=== PATIENT | male | born 1965 ===

== ENCOUNTER 2018-01-04 17:10 | Inpatient (IN) | payer MEDICAID ==
[~2018-01-04] VITALS: Ht 177.8 cm; Wt 76.9 kg
[2018-01-04] MEDS ORDERED: SODIUM CHLORIDE FLUSH 10ML SYR IVF ONE (17:30)
[2018-01-04] MEDS ORDERED: VANCOMYCIN PER PHARMACY IV ONE (17:30)
[2018-01-04] MEDS ORDERED: PIPERACILLIN/TAZO/PMX 3.375GM 50 ML IVPB ONE (17:30)
[2018-01-04] MEDS ORDERED: SODIUM CHLORIDE 0.9% 1,000ML IVBOLUS ONE (17:30)
[2018-01-04] MEDS ORDERED: PIPERACILLIN/TAZO/PMX 3.375GM 50 ML ONE (17:49)
[2018-01-04 18:05] LABS: ALBUMIN 2.8 g/dL (3.4-5.0); ANION GAP 10 mmol/L (5-15); CALCIUM 9.8 mg/dL (8.5-10.1); CHLORIDE 109 mmol/L (98-107)
[2018-01-04 18:10] LABS: ALANINE AMINOTRANSFERASE 17 U/L (12-78); ALKALINE PHOSPHATASE 91 U/L (45-117); BILIRUBIN,TOTAL 0.5 mg/dL (0.2-1.0); CREATININE 0.59 mg/dL (0.7-1.3); TOTAL PROTEIN 7.8 g/dL (6.4-8.2)
[2018-01-04 18:11] LABS: BASOPHILS % (AUTO) 0 % (0-1); EOSINOPHILS # (AUTO) 0.11 x10^3/uL (0-0.4); EOSINOPHILS % (AUTO) 1 % (1-7); HCT (SEDRATE) 37.2 % (39.2-51.8); LYMPHOCYTES # (AUTO) 2.02 x10^3/uL (1-3.4); LYMPHOCYTES % (AUTO) 14 % (22-44); MD NO; MEAN CORPUSCULAR HEMOGLOBIN 28.4 pg (27.5-34.5); MEAN CORPUSCULAR HGB CONC 32.2 g/dL (33.2-36.2); MEAN CORPUSCULAR VOLUME 88.1 fL (81-97); MONOCYTES # (AUTO) 0.58 x10^3/uL (0.2-0.8); MONOCYTES % (AUTO) 4 % (2-9); NEUTROPHILS # (AUTO) 11.85 x10^3/uL (1.8-6.8); NEUTROPHILS % (AUTO) 81 % (42-75); PLATELET COUNT 514 x10^3/uL (130-400); RED BLOOD COUNT 4.22 x10^6/uL (4.38-5.82); RED CELL DISTRIBUTION WIDTH 16.5 % (9.4-14.8)
[2018-01-04 18:23] LABS: SEDIMENTATION RATE 67 mm/hr (0-10)
[2018-01-04] MEDS ORDERED: VANCOMYCIN 1,400 MG in SODIUM CHLORIDE 0.9% 250 ML IV ONE (18:30)
[2018-01-04] MEDS ORDERED: ENOXAPARIN 40 MG/0.4 ML ONE (18:47)
[2018-01-04] MEDS: ENOXAPARIN 40 MG/0.4 ML SQ SCH (18:48)
[2018-01-04] MEDS ORDERED: ONDANSETRON ODT 4 MG PO PRN (19:00)
[2018-01-04] MEDS ORDERED: ACETAMINOPHEN 325 MG TABLET PO PRN (19:00)
[2018-01-04] MEDS ORDERED: ENALAPRILAT 1.25 MG/ML, 2ML IVPush PRN (19:00)
[2018-01-04] MEDS ORDERED: DOCUSATE 100 MG CAPSULE PO PRN (19:00)
[2018-01-04] MEDS ORDERED: DIPHENHYDRAMINE 25 MG CAPSULE PO PRN (19:00)
[2018-01-04] MEDS ORDERED: VANCOMYCIN PER PHARMACY MC PRN (19:00)
[2018-01-04 19:38] LABS: FREE T4 (FREE THYROXINE) 2.79 ng/dL (0.76-1.46); HEMOGLOBIN A1C 6.4 % (4.2-6.3); THYROID STIMULATING HORMONE < 0.005 mIU/L (0.358-3.740)
[2018-01-04] MEDS ORDERED: PHARMACOKINETIC CONSULTATION MC ONE (20:00)
[2018-01-04] MEDS ORDERED: PHARMACOKINETIC MONITORING MC PRN (20:00)
[2018-01-04] MEDS: PIPERACILLIN/TAZO/PMX 3.375GM 50 ML IV SCH (23:49)
[2018-01-05 01:36] VITALS: BP 122/82
[2018-01-05 02:44] VITALS: BP 119/73
[2018-01-05 05:01] LABS: BASOPHILS # (AUTO) 0.17 x10^3/uL (0-0.1); BASOPHILS % (AUTO) 1 % (0-1); EOSINOPHILS # (AUTO) 0.42 x10^3/uL (0-0.4); EOSINOPHILS % (AUTO) 3 % (1-7); LYMPHOCYTES # (AUTO) 3.95 x10^3/uL (1-3.4); LYMPHOCYTES % (AUTO) 31 % (22-44); MD NO; MEAN CORPUSCULAR HEMOGLOBIN 28.3 pg (27.5-34.5); MEAN CORPUSCULAR HGB CONC 32.5 g/dL (33.2-36.2); MEAN PLATELET VOLUME 7.7 fL (7.4-10.4); MONOCYTES # (AUTO) 1.34 x10^3/uL (0.2-0.8); MONOCYTES % (AUTO) 11 % (2-9); NEUTROPHILS # (AUTO) 6.83 x10^3/uL (1.8-6.8); NEUTROPHILS % (AUTO) 54 % (42-75); PLATELET COUNT 474 x10^3/uL (130-400); RED BLOOD COUNT 3.83 x10^6/uL (4.38-5.82); RED CELL DISTRIBUTION WIDTH 16.2 % (9.4-14.8)
[2018-01-05 05:13] LABS: ANION GAP 9 mmol/L (5-15); CALCIUM 8.6 mg/dL (8.5-10.1); CHLORIDE 112 mmol/L (98-107)
[2018-01-05 05:14] LABS: CREATININE 0.52 mg/dL (0.7-1.3)
[2018-01-05] MEDS: PIPERACILLIN/TAZO/PMX 3.375GM 50 ML IV SCH ×4 (05:43→23:48)
[2018-01-05 06:33] VITALS: BP 123/63
[2018-01-05] MEDS: VANCOMYCIN 1,400 MG in SODIUM CHLORIDE 0.9% 250 ML IV SCH ×2 (06:37→18:42)
[2018-01-05] MEDS: ATENOLOL 25 MG TABLET PO SCH ×2 (07:50→18:43)
[2018-01-05 12:39] VITALS: BP 119/73
[2018-01-05] MEDS: ENOXAPARIN 40 MG/0.4 ML SQ SCH (19:00)
[2018-01-05 19:35] VITALS: BP 100/62
[2018-01-06 01:51] VITALS: BP 116/77
[2018-01-06] MEDS: PIPERACILLIN/TAZO/PMX 3.375GM 50 ML IV SCH ×3 (06:09→20:41)
[2018-01-06] MEDS: ATENOLOL 25 MG TABLET PO SCH ×2 (06:09→18:32)
[2018-01-06 06:35] VITALS: BP 126/80
[2018-01-06] MEDS: VANCOMYCIN 1,400 MG in SODIUM CHLORIDE 0.9% 250 ML IV SCH ×2 (06:51→18:33)
[2018-01-06 12:45] VITALS: BP 136/87
[2018-01-06 18:30] VITALS: BP 126/73
[2018-01-06] MEDS: ENOXAPARIN 40 MG/0.4 ML SQ SCH (19:00)
[2018-01-06 19:27] VITALS: BP 119/81
[2018-01-07] MEDS: PIPERACILLIN/TAZO/PMX 3.375GM 50 ML IV SCH ×4 (01:09→20:39)
[2018-01-07 02:35] VITALS: BP 135/77
[2018-01-07] MEDS: ATENOLOL 25 MG TABLET PO SCH ×2 (05:39→18:00)
[2018-01-07] MEDS: VANCOMYCIN 1,400 MG in SODIUM CHLORIDE 0.9% 250 ML IV SCH ×2 (05:39→18:00)
[2018-01-07 06:55] VITALS: BP 138/80
[2018-01-07 07:00] VITALS: BP 135/87
[2018-01-07 13:50] VITALS: BP 133/80
[2018-01-07 17:29] VITALS: BP 109/76
[2018-01-07] MEDS ORDERED: DIPHENHYDRAMINE 12.5MG/5ML, 10ML UDC PO ONE (18:00)
[2018-01-07] MEDS: ENOXAPARIN 40 MG/0.4 ML SQ SCH (18:01)
[2018-01-07 19:26] VITALS: BP 107/70
[2018-01-08 00:28] VITALS: BP 100/63
[2018-01-08] MEDS: PIPERACILLIN/TAZO/PMX 3.375GM 50 ML IV SCH ×4 (01:27→19:34)
[2018-01-08] MEDS: ATENOLOL 25 MG TABLET PO SCH ×2 (06:11→17:54)
[2018-01-08] MEDS: VANCOMYCIN 1,400 MG in SODIUM CHLORIDE 0.9% 250 ML IV SCH ×2 (06:12→17:37)
[2018-01-08 06:19] LABS: CREATININE 0.91 mg/dL (0.7-1.3)
[2018-01-08 06:50] VITALS: BP 111/79
[2018-01-08 14:10] VITALS: BP 113/78
[2018-01-08] MEDS: ENOXAPARIN 40 MG/0.4 ML SQ SCH (17:54)
[2018-01-08 19:19] VITALS: BP 128/78
[2018-01-09 01:21] VITALS: BP 119/77
[2018-01-09] MEDS: PIPERACILLIN/TAZO/PMX 3.375GM 50 ML IV SCH ×3 (01:36→13:26)
[2018-01-09 05:13] LABS: BASOPHILS % (AUTO) 1 % (0-1); EOSINOPHILS # (AUTO) 0.81 x10^3/uL (0-0.4); EOSINOPHILS % (AUTO) 8 % (1-7); LYMPHOCYTES # (AUTO) 3.46 x10^3/uL (1-3.4); LYMPHOCYTES % (AUTO) 34 % (22-44); MD NO; MEAN CORPUSCULAR HEMOGLOBIN 28.5 pg (27.5-34.5); MEAN CORPUSCULAR HGB CONC 32.5 g/dL (33.2-36.2); MEAN CORPUSCULAR VOLUME 87.8 fL (81-97); MONOCYTES # (AUTO) 1.22 x10^3/uL (0.2-0.8); MONOCYTES % (AUTO) 12 % (2-9); NEUTROPHILS # (AUTO) 4.56 x10^3/uL (1.8-6.8); NEUTROPHILS % (AUTO) 45 % (42-75); PLATELET COUNT 655 x10^3/uL (130-400); RED BLOOD COUNT 4.37 x10^6/uL (4.38-5.82); RED CELL DISTRIBUTION WIDTH 16.5 % (9.4-14.8)
[2018-01-09 05:24] LABS: CHLORIDE 110 mmol/L (98-107)
[2018-01-09 05:29] LABS: ALBUMIN 2.7 g/dL (3.4-5.0); ANION GAP 7 mmol/L (5-15); CALCIUM 10.3 mg/dL (8.5-10.1)
[2018-01-09] MEDS: VANCOMYCIN 1,400 MG in SODIUM CHLORIDE 0.9% 250 ML IV SCH (05:37)
[2018-01-09] MEDS: ATENOLOL 25 MG TABLET PO SCH ×3 (05:37→17:45)
[2018-01-09 08:24] VITALS: BP 113/72
[2018-01-09] MEDS: PIPERACILLIN/TAZO/PMX 4.5GM 100 ML IV SCH ×2 (14:30→23:31)
[2018-01-09 16:04] VITALS: BP 133/85
[2018-01-09 19:26] VITALS: BP 129/87
[2018-01-09] MEDS: ENOXAPARIN 40 MG/0.4 ML SQ SCH (19:35)
[2018-01-10 01:39] VITALS: BP 119/70
[2018-01-10 05:48] LABS: BASOPHILS # (AUTO) 0.14 x10^3/uL (0-0.1); BASOPHILS % (AUTO) 1 % (0-1); EOSINOPHILS # (AUTO) 0.58 x10^3/uL (0-0.4); EOSINOPHILS % (AUTO) 5 % (1-7); LYMPHOCYTES # (AUTO) 3.01 x10^3/uL (1-3.4); LYMPHOCYTES % (AUTO) 28 % (22-44); MD NO; MEAN CORPUSCULAR HGB CONC 33.1 g/dL (33.2-36.2); MEAN CORPUSCULAR VOLUME 87.7 fL (81-97); MEAN PLATELET VOLUME 8.1 fL (7.4-10.4); MONOCYTES # (AUTO) 1.29 x10^3/uL (0.2-0.8); MONOCYTES % (AUTO) 12 % (2-9); NEUTROPHILS # (AUTO) 5.86 x10^3/uL (1.8-6.8); NEUTROPHILS % (AUTO) 54 % (42-75); PLATELET COUNT 646 x10^3/uL (130-400); RED BLOOD COUNT 4.51 x10^6/uL (4.38-5.82); RED CELL DISTRIBUTION WIDTH 16.6 % (9.4-14.8)
[2018-01-10 05:56] LABS: ANION GAP 9 mmol/L (5-15); CALCIUM 9.8 mg/dL (8.5-10.1); CHLORIDE 110 mmol/L (98-107)
[2018-01-10 05:58] LABS: CREATININE 0.84 mg/dL (0.7-1.3)
[2018-01-10] MEDS: ATENOLOL 25 MG TABLET PO SCH ×2 (06:27→18:03)
[2018-01-10] MEDS: PIPERACILLIN/TAZO/PMX 4.5GM 100 ML IV SCH ×2 (06:27→18:03)
[2018-01-10 07:23] VITALS: BP 118/78
[2018-01-10 13:59] VITALS: BP 124/74
[2018-01-10] MEDS: ENOXAPARIN 40 MG/0.4 ML SQ SCH (18:03)
[2018-01-10 19:21] VITALS: BP 118/78
[2018-01-11 02:12] VITALS: BP 131/81
[2018-01-11] MEDS: PIPERACILLIN/TAZO/PMX 4.5GM 100 ML IV SCH ×3 (02:12→17:25)
[2018-01-11] MEDS: ATENOLOL 25 MG TABLET PO SCH ×2 (05:21→17:25)
[2018-01-11] MEDS ORDERED: LIDOCAINE/PF 1%, 30ML INFIL ONE (07:00)
[2018-01-11 08:31] VITALS: BP 110/73
[2018-01-11 14:35] VITALS: BP 117/75
[2018-01-11] MEDS: ENOXAPARIN 40 MG/0.4 ML SQ SCH (17:51)
[2018-01-11 19:04] VITALS: BP 112/72
[2018-01-12] MEDS: PIPERACILLIN/TAZO/PMX 4.5GM 100 ML IV SCH ×3 (01:34→18:17)
[2018-01-12] MEDS: ATENOLOL 25 MG TABLET PO SCH ×2 (04:17→18:17)
[2018-01-12 06:42] VITALS: BP 117/80
[2018-01-12] MEDS: LINEZOLID 600 MG TABLET PO SCH ×2 (12:00→20:20)
[2018-01-12 15:59] VITALS: BP 116/71
[2018-01-12] MEDS: ENOXAPARIN 40 MG/0.4 ML SQ SCH (19:00)
[2018-01-12 19:38] VITALS: BP 120/78
[2018-01-13] MEDS: PIPERACILLIN/TAZO/PMX 4.5GM 100 ML IV SCH ×3 (02:08→17:39)
[2018-01-13] MEDS: ATENOLOL 25 MG TABLET PO SCH ×2 (04:01→17:38)
[2018-01-13 05:30] LABS: BASOPHILS # (AUTO) 0.09 x10^3/uL (0-0.1); BASOPHILS % (AUTO) 1 % (0-1); EOSINOPHILS # (AUTO) 0.66 x10^3/uL (0-0.4); EOSINOPHILS % (AUTO) 6 % (1-7); LYMPHOCYTES # (AUTO) 3.12 x10^3/uL (1-3.4); LYMPHOCYTES % (AUTO) 29 % (22-44); MD NO; MEAN CORPUSCULAR HEMOGLOBIN 28.3 pg (27.5-34.5); MEAN CORPUSCULAR HGB CONC 31.9 g/dL (33.2-36.2); MEAN CORPUSCULAR VOLUME 88.7 fL (81-97); MEAN PLATELET VOLUME 7.8 fL (7.4-10.4); MONOCYTES # (AUTO) 1.16 x10^3/uL (0.2-0.8); MONOCYTES % (AUTO) 11 % (2-9); NEUTROPHILS # (AUTO) 5.63 x10^3/uL (1.8-6.8); NEUTROPHILS % (AUTO) 53 % (42-75); PLATELET COUNT 698 x10^3/uL (130-400); RED CELL DISTRIBUTION WIDTH 16.9 % (9.4-14.8)
[2018-01-13 05:44] LABS: ALBUMIN 2.8 g/dL (3.4-5.0); ANION GAP 8 mmol/L (5-15); CALCIUM 10.3 mg/dL (8.5-10.1); CHLORIDE 111 mmol/L (98-107); CREATININE 0.93 mg/dL (0.7-1.3)
[2018-01-13] MEDS ORDERED: BUPIVACAINE/PF 0.5% ONE (06:46)
[2018-01-13] MEDS ORDERED: BUPIVACAINE/PF-EPI 0.5% 1:200K ONE (06:46)
[2018-01-13 07:48] VITALS: BP 124/77
[2018-01-13 08:33] LABS: T4 (THYROXINE) 13.2 mcg/dL (4.5-12.1)
[2018-01-13 08:38] LABS: THYROID STIMULATING HORMONE < 0.005 mIU/L (0.358-3.740)
[2018-01-13] MEDS: LINEZOLID 600 MG TABLET PO SCH ×2 (10:16→21:40)
[2018-01-13 15:01] VITALS: BP 125/77
[2018-01-13] MEDS: ENOXAPARIN 40 MG/0.4 ML SQ SCH (19:00)
[2018-01-13 19:15] VITALS: BP 128/79
[2018-01-14] MEDS: PIPERACILLIN/TAZO/PMX 4.5GM 100 ML IV SCH ×3 (01:34→17:45)
[2018-01-14 01:38] VITALS: BP 122/79
[2018-01-14] MEDS: ATENOLOL 25 MG TABLET PO SCH ×2 (06:00→17:45)
[2018-01-14 06:59] VITALS: BP 122/84
[2018-01-14] MEDS: LINEZOLID 600 MG TABLET PO SCH ×2 (11:23→21:16)
[2018-01-14 13:15] VITALS: BP 132/87
[2018-01-14] MEDS: ENOXAPARIN 40 MG/0.4 ML SQ SCH (19:00)
[2018-01-14 20:26] VITALS: BP 113/72
[2018-01-15] MEDS: PIPERACILLIN/TAZO/PMX 4.5GM 100 ML IV SCH ×3 (02:17→17:56)
[2018-01-15 02:23] VITALS: BP 124/80
[2018-01-15 05:54] LABS: BASOPHILS # (AUTO) 0.07 x10^3/uL (0-0.1); BASOPHILS % (AUTO) 1 % (0-1); EOSINOPHILS # (AUTO) 0.68 x10^3/uL (0-0.4); EOSINOPHILS % (AUTO) 6 % (1-7); LYMPHOCYTES # (AUTO) 3.33 x10^3/uL (1-3.4); LYMPHOCYTES % (AUTO) 30 % (22-44); MD NO; MEAN CORPUSCULAR HEMOGLOBIN 28.2 pg (27.5-34.5); MEAN CORPUSCULAR HGB CONC 32.1 g/dL (33.2-36.2); MEAN CORPUSCULAR VOLUME 88.1 fL (81-97); MEAN PLATELET VOLUME 7.6 fL (7.4-10.4); MONOCYTES # (AUTO) 0.17 x10^3/uL (0.2-0.8); MONOCYTES % (AUTO) 2 % (2-9); NEUTROPHILS # (AUTO) 6.68 x10^3/uL (1.8-6.8); NEUTROPHILS % (AUTO) 61 % (42-75); PLATELET COUNT 802 x10^3/uL (130-400); RED BLOOD COUNT 4.69 x10^6/uL (4.38-5.82); RED CELL DISTRIBUTION WIDTH 17.2 % (9.4-14.8)
[2018-01-15 06:01] LABS: CHLORIDE 109 mmol/L (98-107)
[2018-01-15 06:12] LABS: ALBUMIN 3.1 g/dL (3.4-5.0); ANION GAP 9 mmol/L (5-15); CALCIUM 9.7 mg/dL (8.5-10.1); CREATININE 0.88 mg/dL (0.7-1.3)
[2018-01-15 06:55] VITALS: BP 124/82
[2018-01-15] MEDS: ATENOLOL 25 MG TABLET PO SCH ×2 (09:35→17:57)
[2018-01-15] MEDS: LINEZOLID 600 MG TABLET PO SCH ×2 (09:35→21:10)
[2018-01-15 13:21] VITALS: BP 114/74
[2018-01-15 18:35] VITALS: BP 111/70
[2018-01-15] MEDS: ENOXAPARIN 40 MG/0.4 ML SQ SCH ×3 (19:00→23:28)
[2018-01-16 02:00] VITALS: BP 115/87
[2018-01-16] MEDS: PIPERACILLIN/TAZO/PMX 4.5GM 100 ML IV SCH ×3 (02:45→18:30)
[2018-01-16 04:55] LABS: MEAN CORPUSCULAR HEMOGLOBIN 28.4 pg (27.5-34.5); MEAN CORPUSCULAR HGB CONC 32.4 g/dL (33.2-36.2); MEAN CORPUSCULAR VOLUME 87.4 fL (81-97); MEAN PLATELET VOLUME 7.7 fL (7.4-10.4); PLATELET COUNT 752 x10^3/uL (130-400); RED BLOOD COUNT 4.67 x10^6/uL (4.38-5.82)
[2018-01-16 05:01] LABS: ALBUMIN 2.8 g/dL (3.4-5.0); ANION GAP 9 mmol/L (5-15); CALCIUM 9.7 mg/dL (8.5-10.1); CHLORIDE 111 mmol/L (98-107); CREATININE 0.97 mg/dL (0.7-1.3)
[2018-01-16 05:28] LABS: BASOPHILS # (AUTO) 0.69 x10^3/uL (0-0.1); BASOPHILS % (AUTO) 7 % (0-1); EOSINOPHILS # (AUTO) 0.61 x10^3/uL (0-0.4); EOSINOPHILS % (AUTO) 6 % (1-7); LYMPHOCYTES # (AUTO) 3.51 x10^3/uL (1-3.4); LYMPHOCYTES % (AUTO) 36 % (22-44); MD SCAN; MONOCYTES # (AUTO) 0.83 x10^3/uL (0.2-0.8); MONOCYTES % (AUTO) 8 % (2-9); NEUTROPHILS # (AUTO) 4.26 x10^3/uL (1.8-6.8); NEUTROPHILS % (AUTO) 43 % (42-75)
[2018-01-16 07:39] VITALS: BP 126/84
[2018-01-16] MEDS: ATENOLOL 25 MG TABLET PO SCH ×2 (09:21→18:02)
[2018-01-16] MEDS: LINEZOLID 600 MG TABLET PO SCH ×2 (09:21→21:09)
[2018-01-16 15:00] VITALS: BP 104/66
[2018-01-16 19:15] VITALS: BP 114/73
[2018-01-17] MEDS: PIPERACILLIN/TAZO/PMX 4.5GM 100 ML IV SCH ×3 (02:04→18:00)
[2018-01-17 04:45] VITALS: BP 113/80
[2018-01-17 05:52] LABS: BASOPHILS # (AUTO) 0.15 x10^3/uL (0-0.1); BASOPHILS % (AUTO) 1 % (0-1); EOSINOPHILS # (AUTO) 0.65 x10^3/uL (0-0.4); EOSINOPHILS % (AUTO) 6 % (1-7); LYMPHOCYTES # (AUTO) 4.04 x10^3/uL (1-3.4); LYMPHOCYTES % (AUTO) 40 % (22-44); MD NO; MEAN CORPUSCULAR HEMOGLOBIN 28.7 pg (27.5-34.5); MEAN CORPUSCULAR HGB CONC 32.7 g/dL (33.2-36.2); MEAN CORPUSCULAR VOLUME 87.6 fL (81-97); MEAN PLATELET VOLUME 7.9 fL (7.4-10.4); MONOCYTES # (AUTO) 0.81 x10^3/uL (0.2-0.8); MONOCYTES % (AUTO) 8 % (2-9); NEUTROPHILS # (AUTO) 4.54 x10^3/uL (1.8-6.8); NEUTROPHILS % (AUTO) 45 % (42-75); PLATELET COUNT 738 x10^3/uL (130-400); RED BLOOD COUNT 4.68 x10^6/uL (4.38-5.82); RED CELL DISTRIBUTION WIDTH 16.9 % (9.4-14.8)
[2018-01-17 05:53] LABS: CHLORIDE 110 mmol/L (98-107)
[2018-01-17 06:07] LABS: ALANINE AMINOTRANSFERASE 16 U/L (12-78); ALKALINE PHOSPHATASE 76 U/L (45-117); ANION GAP 8 mmol/L (5-15); BILIRUBIN,TOTAL 0.7 mg/dL (0.2-1.0); CALCIUM 9.3 mg/dL (8.5-10.1); CREATININE 0.92 mg/dL (0.7-1.3); FREE T4 (FREE THYROXINE) 1.31 ng/dL (0.76-1.46); TOTAL PROTEIN 8.2 g/dL (6.4-8.2)
[2018-01-17 06:12] LABS: THYROID STIMULATING HORMONE < 0.005 mIU/L (0.358-3.740)
[2018-01-17 06:28] LABS: SEDIMENTATION RATE 44 mm/hr (0-10)
[2018-01-17 07:24] VITALS: BP 124/76
[2018-01-17] MEDS: LINEZOLID 600 MG TABLET PO SCH ×2 (08:42→20:15)
[2018-01-17] MEDS: ATENOLOL 25 MG TABLET PO SCH ×2 (08:42→18:00)
[2018-01-17 18:02] VITALS: BP 122/82
[2018-01-17] MEDS: ENOXAPARIN 40 MG/0.4 ML SQ SCH (18:31)
[2018-01-17 19:48] VITALS: BP 111/74
[2018-01-18] MEDS: PIPERACILLIN/TAZO/PMX 4.5GM 100 ML IV SCH ×3 (01:54→18:26)
[2018-01-18 01:56] VITALS: BP 118/75
[2018-01-18 05:29] LABS: BASOPHILS % (AUTO) 1 % (0-1); EOSINOPHILS # (AUTO) 0.65 x10^3/uL (0-0.4); EOSINOPHILS % (AUTO) 6 % (1-7); LYMPHOCYTES # (AUTO) 3.89 x10^3/uL (1-3.4); LYMPHOCYTES % (AUTO) 37 % (22-44); MD NO; MEAN CORPUSCULAR HEMOGLOBIN 28.5 pg (27.5-34.5); MEAN CORPUSCULAR HGB CONC 32.7 g/dL (33.2-36.2); MEAN CORPUSCULAR VOLUME 87.1 fL (81-97); MEAN PLATELET VOLUME 7.6 fL (7.4-10.4); MONOCYTES # (AUTO) 0.79 x10^3/uL (0.2-0.8); MONOCYTES % (AUTO) 8 % (2-9); NEUTROPHILS # (AUTO) 5.09 x10^3/uL (1.8-6.8); NEUTROPHILS % (AUTO) 48 % (42-75); PLATELET COUNT 779 x10^3/uL (130-400); RED BLOOD COUNT 4.74 x10^6/uL (4.38-5.82); RED CELL DISTRIBUTION WIDTH 16.9 % (9.4-14.8)
[2018-01-18 05:41] LABS: ANION GAP 10 mmol/L (5-15); CALCIUM 9.1 mg/dL (8.5-10.1); CHLORIDE 110 mmol/L (98-107); CREATININE 0.93 mg/dL (0.7-1.3)
[2018-01-18] MEDS: ATENOLOL 25 MG TABLET PO SCH ×2 (05:49→18:26)
[2018-01-18 08:20] VITALS: BP 126/83
[2018-01-18] MEDS: LINEZOLID 600 MG TABLET PO SCH ×2 (09:05→21:07)
[2018-01-18 14:58] VITALS: BP 125/81
[2018-01-18 18:25] VITALS: BP 139/79
[2018-01-18] MEDS: ENOXAPARIN 40 MG/0.4 ML SQ SCH (19:00)
[2018-01-19] MEDS: PIPERACILLIN/TAZO/PMX 4.5GM 100 ML IV SCH ×3 (02:05→17:43)
[2018-01-19 03:26] VITALS: BP 124/79
[2018-01-19] MEDS: ATENOLOL 25 MG TABLET PO SCH ×2 (06:04→17:43)
[2018-01-19 06:50] VITALS: BP 116/74
[2018-01-19] MEDS: LINEZOLID 600 MG TABLET PO SCH ×2 (10:03→20:00)
[2018-01-19 13:09] VITALS: BP 116/76
[2018-01-19] MEDS: ENOXAPARIN 40 MG/0.4 ML SQ SCH (19:00)
[2018-01-19 20:03] VITALS: BP 113/74
[2018-01-19 20:18] VITALS: BP 107/69
[2018-01-20] MEDS: PIPERACILLIN/TAZO/PMX 4.5GM 100 ML IV SCH ×3 (01:50→17:59)
[2018-01-20 03:59] VITALS: BP 102/68
[2018-01-20] MEDS: ATENOLOL 25 MG TABLET PO SCH ×2 (06:00→18:00)
[2018-01-20 07:05] VITALS: BP 115/75
[2018-01-20] MEDS: LINEZOLID 600 MG TABLET PO SCH ×2 (10:00→20:03)
[2018-01-20 16:45] VITALS: BP 128/81
[2018-01-20] MEDS: ENOXAPARIN 40 MG/0.4 ML SQ SCH (17:59)
[2018-01-20 20:42] VITALS: BP 133/81
[2018-01-21 01:40] VITALS: BP 121/76
[2018-01-21] MEDS: PIPERACILLIN/TAZO/PMX 4.5GM 100 ML IV SCH ×3 (02:05→18:33)
[2018-01-21] MEDS: ATENOLOL 25 MG TABLET PO SCH ×2 (05:28→17:52)
[2018-01-21 06:06] VITALS: BP 113/74
[2018-01-21] MEDS: LINEZOLID 600 MG TABLET PO SCH ×2 (08:58→21:23)
[2018-01-21] MEDS ORDERED: MIDAZOLAM 1 MG/ML, 2ML ONE (12:03)
[2018-01-21] MEDS ORDERED: FENTANYL PF 250 MCG/5ML ONE (12:03)
[2018-01-21] MEDS ORDERED: LIDOCAINE GEL 2%, 5ML ONE (12:06)
[2018-01-21] MEDS ORDERED: BUPIVACAINE/PF 0.5% ONE (12:09)
[2018-01-21] MEDS ORDERED: ONDANSETRON ODT 8 MG ONE (12:19)
[2018-01-21] MEDS ORDERED: OxyconTIN ER 20 MG TAB.ER ONE (12:19)
[2018-01-21] MEDS ORDERED: ACETAMINOPHEN 500 MG TABLET ONE (12:20)
[2018-01-21] MEDS ORDERED: GABAPENTIN 300 MG CAPSULE ONE (12:20)
[2018-01-21] MEDS ORDERED: OxyconTIN ER 20 MG TAB.ER PO ONE (12:30)
[2018-01-21] MEDS ORDERED: GABAPENTIN 400 MG CAPSULE PO ONE (12:30)
[2018-01-21] MEDS ORDERED: ONDANSETRON ODT 8 MG PO ONE (12:30)
[2018-01-21] MEDS ORDERED: ACETAMINOPHEN 500 MG TABLET PO ONE (12:30)
[2018-01-21] MEDS ORDERED: SUCCINYLCHOLINE 20 MG/ML, 10ML ONE (12:35)
[2018-01-21] MEDS ORDERED: ROCURONIUM 10 MG/ML,10ML ONE (12:35)
[2018-01-21] MEDS ORDERED: MIDAZOLAM 1 MG/ML, 2ML IV PRN (13:30)
[2018-01-21] MEDS ORDERED: MEPERIDINE/PF 25MG/0.5ML IVPush PRN (13:30)
[2018-01-21] MEDS ORDERED: ONDANSETRON ODT 8 MG PO PRN (13:30)
[2018-01-21] MEDS ORDERED: EPHEDRINE 50 MG/ML, 1ML IM PRN (13:30)
[2018-01-21] MEDS ORDERED: DIAZEPAM 5 MG/ML, 2ML IVPush PRN (13:30)
[2018-01-21] MEDS ORDERED: SCOPOLAMINE PATCH, 1.5MG PATCH.TD72 TD PRN (13:30)
[2018-01-21] MEDS ORDERED: MORPHINE SULFATE 4 MG/ML, 1ML IVPush PRN (13:30)
[2018-01-21] MEDS ORDERED: DIPHENHYDRAMINE 50 MG/ML, 1ML IVPush PRN (13:30)
[2018-01-21] MEDS ORDERED: ALBUTEROL/IPRATROPIUM 2.5MG/0.5MG, 3 ML NPPB PRN (13:30)
[2018-01-21] MEDS ORDERED: hydrALAzine 20 MG/ML, 1ML IV PRN (13:30)
[2018-01-21] MEDS ORDERED: PROMETHAZINE 25 MG/ML, 1ML IV PRN (13:30)
[2018-01-21] MEDS ORDERED: LABETALOL 5MG/ML, 20ML IV PRN (13:30)
[2018-01-21] MEDS ORDERED: OXYcodone 5 MG/5 ML ORAL.SOL UDC PO PRN (13:30)
[2018-01-21] MEDS ORDERED: ONDANSETRON 2MG/ML, 2ML ONE (14:28)
[2018-01-21] MEDS ORDERED: PROPOFOL 10 MG/ML, 20ML ONE (14:28)
[2018-01-21] MEDS ORDERED: CEFAZOLIN 1,000 MG ONE (14:28)
[2018-01-21] MEDS ORDERED: DEXAMETHASONE 4 MG/ML, 1ML ONE (14:28)
[2018-01-21] MEDS: FENTANYL PF 100 MCG/2ML IV PRN ×2 (15:12→16:33)
[2018-01-21] MEDS ORDERED: FENTANYL PF 100 MCG/2ML ONE (15:13)
[2018-01-21] MEDS ORDERED: MORPHINE SULFATE 4 MG/ML, 1ML ONE (15:13)
[2018-01-21] MEDS ORDERED: OXYcodone 5 MG/5 ML ORAL.SOL UDC ONE (16:29)
[2018-01-21] MEDS: ENOXAPARIN 40 MG/0.4 ML SQ SCH (17:53)
[2018-01-21 19:45] VITALS: BP 134/78
[2018-01-22] MEDS: PIPERACILLIN/TAZO/PMX 4.5GM 100 ML IV SCH ×3 (01:52→17:28)
[2018-01-22 04:52] VITALS: BP 105/70
[2018-01-22] MEDS: ATENOLOL 25 MG TABLET PO SCH ×2 (06:01→17:29)
[2018-01-22 07:28] VITALS: BP 104/66
[2018-01-22] MEDS: LINEZOLID 600 MG TABLET PO SCH ×2 (08:03→20:39)
[2018-01-22] MEDS ORDERED: CALCIUM GLUCONATE 4.6 MEQ in SODIUM CHLORIDE 0.9% 50 ML IV ONE (10:00)
[2018-01-22] MEDS: CALCIUM/VITAMIN D3 250-125 TABLET PO SCH ×3 (11:03→20:39)
[2018-01-22 14:10] VITALS: BP 110/75
[2018-01-22] MEDS: ENOXAPARIN 40 MG/0.4 ML SQ SCH (17:28)
[2018-01-22 17:29] VITALS: BP 125/82
[2018-01-22 19:34] VITALS: BP 130/86
[2018-01-23] MEDS: PIPERACILLIN/TAZO/PMX 4.5GM 100 ML IV SCH ×3 (02:21→16:51)
[2018-01-23 02:25] VITALS: BP 133/87
[2018-01-23 05:29] LABS: FREE T4 (FREE THYROXINE) 1.27 ng/dL (0.76-1.46)
[2018-01-23 05:33] LABS: THYROID STIMULATING HORMONE < 0.005 mIU/L (0.358-3.740)
[2018-01-23] MEDS: ATENOLOL 25 MG TABLET PO SCH ×2 (06:00→16:51)
[2018-01-23 07:55] VITALS: BP 124/79
[2018-01-23] MEDS: LINEZOLID 600 MG TABLET PO SCH ×2 (10:04→21:14)
[2018-01-23] MEDS: CALCIUM/VITAMIN D3 250-125 TABLET PO SCH ×3 (10:04→21:14)
[2018-01-23] MEDS ORDERED: CALCIUM GLUCONATE 9.2 MEQ in SODIUM CHLORIDE 0.9% 100 ML IV ONE (11:00)
[2018-01-23] MEDS ORDERED: ERGOCALCIFEROL 50,000 UNIT CAPSULE PO SCH (11:00)
[2018-01-23 13:29] VITALS: BP 122/81
[2018-01-23] MEDS: ENOXAPARIN 40 MG/0.4 ML SQ SCH (19:00)
[2018-01-23 21:36] VITALS: BP 138/83
[2018-01-24] MEDS: PIPERACILLIN/TAZO/PMX 4.5GM 100 ML IV SCH ×3 (02:15→17:03)
[2018-01-24 03:03] VITALS: BP 135/82
[2018-01-24 05:37] LABS: CHLORIDE 106 mmol/L (98-107)
[2018-01-24 05:55] LABS: ALANINE AMINOTRANSFERASE 13 U/L (12-78); ALBUMIN 2.8 g/dL (3.4-5.0); ALKALINE PHOSPHATASE 71 U/L (45-117); ANION GAP 9 mmol/L (5-15); BILIRUBIN,TOTAL 0.7 mg/dL (0.2-1.0); CALCIUM 7.8 mg/dL (8.5-10.1); CREATININE 0.84 mg/dL (0.7-1.3); TOTAL PROTEIN 7.3 g/dL (6.4-8.2)
[2018-01-24 06:14] LABS: MEAN CORPUSCULAR HEMOGLOBIN 28.6 pg (27.5-34.5); MEAN CORPUSCULAR HGB CONC 32.8 g/dL (33.2-36.2); MEAN CORPUSCULAR VOLUME 87.3 fL (81-97); MEAN PLATELET VOLUME 7.8 fL (7.4-10.4); PLATELET COUNT 531 x10^3/uL (130-400); RED BLOOD COUNT 4.54 x10^6/uL (4.38-5.82); RED CELL DISTRIBUTION WIDTH 17.2 % (9.4-14.8)
[2018-01-24] MEDS: ATENOLOL 25 MG TABLET PO SCH ×2 (06:23→17:03)
[2018-01-24 06:41] LABS: HCT (SEDRATE) 39.6 % (39.2-51.8)
[2018-01-24 06:51] LABS: MD YES
[2018-01-24 07:01] LABS: BASOS#(MANUAL) 0.13 x10^3/uL (0-0.1); BASOS% (MANUAL) 1 % (0-1); EOS#(MANUAL) 0.26 x10^3/uL (0.0-0.4); EOS% (MANUAL) 2 % (1-7)
[2018-01-24 07:02] LABS: LYMPH#(MANUAL) 5.16 x10^3/uL (1-3.4); LYMPHS% (MANUAL) 40 % (22-44); MONOS% (MANUAL) 7 % (2-9); SEG#(MANUAL) 6.45 x10^3/uL (1.8-6.8); SEGS% (MANUAL) 50 % (42-75)
[2018-01-24 07:03] LABS: ANISOCYTOSIS 1+
[2018-01-24 07:05] LABS: <PLATELET ESTIMATE> INCREASED; <PLT MORPHOLOGY> NORMAL PLT MORPH
[2018-01-24 07:18] VITALS: BP 115/72
[2018-01-24] MEDS: LINEZOLID 600 MG TABLET PO SCH ×2 (10:16→20:53)
[2018-01-24] MEDS: CALCIUM/VITAMIN D3 250-125 TABLET PO SCH ×3 (10:16→20:53)
[2018-01-24 12:29] VITALS: BP 124/74
[2018-01-24 17:00] VITALS: BP 138/82
[2018-01-24 19:23] VITALS: BP 121/70
[2018-01-24] MEDS: ENOXAPARIN 40 MG/0.4 ML SQ SCH (20:53)
[2018-01-25 02:22] VITALS: BP 118/68
[2018-01-25] MEDS: PIPERACILLIN/TAZO/PMX 4.5GM 100 ML IV SCH ×3 (02:39→17:18)
[2018-01-25] MEDS: ATENOLOL 25 MG TABLET PO SCH ×2 (05:30→17:17)
[2018-01-25 07:52] VITALS: BP 139/90
[2018-01-25] MEDS: CALCIUM/VITAMIN D3 250-125 TABLET PO SCH ×3 (10:00→21:00)
[2018-01-25] MEDS: LINEZOLID 600 MG TABLET PO SCH ×2 (10:00→21:00)
[2018-01-25 13:00] VITALS: BP 141/84
[2018-01-25] MEDS: ENOXAPARIN 40 MG/0.4 ML SQ SCH (17:40)
[2018-01-25 20:47] VITALS: BP 133/77
[2018-01-26] MEDS: PIPERACILLIN/TAZO/PMX 4.5GM 100 ML IV SCH ×2 (01:57→10:49)
[2018-01-26 01:58] VITALS: BP 150/92
[2018-01-26] MEDS: ATENOLOL 25 MG TABLET PO SCH ×2 (05:35→17:55)
[2018-01-26 08:11] VITALS: BP 133/84
[2018-01-26] MEDS: CALCIUM/VITAMIN D3 250-125 TABLET PO SCH ×3 (08:52→20:49)
[2018-01-26] MEDS: LINEZOLID 600 MG TABLET PO SCH (08:52)
[2018-01-26 12:29] VITALS: BP 153/56
[2018-01-26] MEDS: ENOXAPARIN 40 MG/0.4 ML SQ SCH (17:55)
[2018-01-26 17:57] VITALS: BP 143/86
[2018-01-26 20:01] VITALS: BP 128/62
[2018-01-27 03:20] VITALS: BP 151/86
[2018-01-27] MEDS: ATENOLOL 25 MG TABLET PO SCH ×2 (06:35→18:29)
[2018-01-27 07:09] VITALS: BP 143/85
[2018-01-27] MEDS: CALCIUM/VITAMIN D3 250-125 TABLET PO SCH ×3 (08:44→21:05)
[2018-01-27 15:17] VITALS: BP 156/89
[2018-01-27] MEDS: ENOXAPARIN 40 MG/0.4 ML SQ SCH (18:29)
[2018-01-27 18:48] VITALS: BP 144/83
[2018-01-28 02:37] VITALS: BP 142/87
[2018-01-28] MEDS: ATENOLOL 25 MG TABLET PO SCH (05:44)
[2018-01-28 07:45] VITALS: BP 153/94
[2018-01-28] MEDS: CALCIUM/VITAMIN D3 250-125 TABLET PO SCH (08:31)
[2018-01-28 12:01] LABS: ALANINE AMINOTRANSFERASE 29 U/L (12-78); ALBUMIN 3.2 g/dL (3.4-5.0); ANION GAP 8 mmol/L (5-15); CALCIUM 8.5 mg/dL (8.5-10.1); CHLORIDE 106 mmol/L (98-107); CREATININE 0.77 mg/dL (0.7-1.3)
[2018-01-28 12:04] LABS: ALKALINE PHOSPHATASE 84 U/L (45-117); BILIRUBIN,TOTAL 0.3 mg/dL (0.2-1.0); TOTAL PROTEIN 8.2 g/dL (6.4-8.2)
[2018-01-28 12:11] LABS: BASOPHILS # (AUTO) 0.31 x10^3/uL (0-0.1); BASOPHILS % (AUTO) 4 % (0-1); EOSINOPHILS # (AUTO) 0.92 x10^3/uL (0-0.4); EOSINOPHILS % (AUTO) 12 % (1-7); LYMPHOCYTES # (AUTO) 3.29 x10^3/uL (1-3.4); LYMPHOCYTES % (AUTO) 42 % (22-44); MD SCAN; MEAN CORPUSCULAR HEMOGLOBIN 28.9 pg (27.5-34.5); MEAN CORPUSCULAR HGB CONC 33.3 g/dL (33.2-36.2); MEAN PLATELET VOLUME 7.9 fL (7.4-10.4); MONOCYTES # (AUTO) 0.63 x10^3/uL (0.2-0.8); MONOCYTES % (AUTO) 8 % (2-9); NEUTROPHILS # (AUTO) 2.76 x10^3/uL (1.8-6.8); NEUTROPHILS % (AUTO) 35 % (42-75); PLATELET COUNT 423 x10^3/uL (130-400); RED BLOOD COUNT 4.91 x10^6/uL (4.38-5.82); RED CELL DISTRIBUTION WIDTH 16.8 % (9.4-14.8)
[2018-01-28 13:29] VITALS: BP 143/92
[2018-01-28] MEDS ORDERED: CALC1TAB68 PO (16:29)
[2018-01-28] MEDS ORDERED: ATEN25TA PO (16:29)
[2018-01-28] MEDS ORDERED: ERGO500017 PO (16:29)
== END 2018-01-28 18:15 | disposition home or self-care (01) | DRG 626 ==
LOC: ED 17:55 → OBSVTOIN 18:16 → INTOOBSV 18:16 → EDIP 18:16 → 3NE 19:43 → 4NOR 01-21 17:31
PROVIDERS: ADMIT Internal Medicine; ATTEND Internal Medicine
PROC: 0GBL0ZZ Excision of Right Superior Parathyroid Gland, Open Approach (ICD-10-PCS; principal; 2018-01-21 14:00)
PROC: 0JBP0ZX Excision of Left Lower Leg Subcutaneous Tissue and Fascia, Open Approach, Diagnostic (ICD-10-PCS; 2018-01-21 14:00)
DX: E05.00 Thyrotoxicosis with diffuse goiter without thyrotoxic crisis or storm (principal); I50.32 Chronic diastolic (congestive) heart failure; I27.20 Pulmonary hypertension, unspecified; L03.116 Cellulitis of left lower limb; E83.51 Hypocalcemia; L97.929 Non-pressure chronic ulcer of unspecified part of left lower leg with unspecified severity; L88 Pyoderma gangrenosum; R73.9 Hyperglycemia, unspecified; D63.8 Anemia in other chronic diseases classified elsewhere; F12.90 Cannabis use, unspecified, uncomplicated; F14.11 Cocaine abuse, in remission; F17.200 Nicotine dependence, unspecified, uncomplicated; Z80.0 Family history of malignant neoplasm of digestive organs; Z59.0 Homelessness; Z91.14 Patient's other noncompliance with medication regimen; D47.3 Essential (hemorrhagic) thrombocythemia
CPT/HCPCS: 36415; 80048; 80053; 80202; 82040; 82306; 82310; 82330; 82565; 82607; 83036; 83516; 83605; 83735; 83970; 84100; 84436; 84439; 84443; 84481; 85025; 85651; 86038; 86140; 86147; 86160; 86225; 86235; 86255; 86256; 86376; 86430; 86431; 87040; 87070; 87077; 87147; 87186; 87205; 88305; 88307; 88333; 93922; 96365; 96367; 96375; 99285; C1729; J0610; J0690; J1100; J1650; J2250; J2405; J2543; J2704; J3010; J3370; J3490; Q0162; C1760; G0378; J0330; J7030; J7050

== ENCOUNTER 2018-01-31 13:57 | Inpatient (IN) | payer MEDICAID ==
[~2018-01-31] VITALS: Ht 177.8 cm; Wt 84.0 kg
[~2018-01-31 13:57] MED LIST: ATEN25TA PO; CALC1TAB68 PO; ERGO500017 PO
[2018-01-31] MEDS ORDERED: ACETAMINOPHEN 500 MG TABLET ONE (14:14)
[2018-01-31] MEDS ORDERED: LINEZOLID PMX 600MG/300ML 300 ML IV ONE (14:30)
[2018-01-31] MEDS ORDERED: SODIUM CHLORIDE 0.9% 1,000ML IVBOLUS ONE ×2 (14:30→16:00)
[2018-01-31] MEDS ORDERED: PIPERACILLIN/TAZO/PMX 3.375GM 50 ML IV ONE (14:30)
[2018-01-31] MEDS ORDERED: SODIUM CHLORIDE FLUSH 10ML SYR IVF ONE (14:30)
[2018-01-31] MEDS ORDERED: ACETAMINOPHEN 500 MG TABLET PO ONE (14:30)
[2018-01-31] MEDS ORDERED: PIPERACILLIN/TAZO/PMX 3.375GM 50 ML ONE (14:43)
[2018-01-31 15:06] LABS: ALBUMIN 3.3 g/dL (3.4-5.0); ANION GAP 9 mmol/L (5-15); CALCIUM 7.8 mg/dL (8.5-10.1); CHLORIDE 112 mmol/L (98-107)
[2018-01-31 15:17] LABS: MD YES; MEAN CORPUSCULAR HEMOGLOBIN 28.4 pg (27.5-34.5); MEAN CORPUSCULAR HGB CONC 32.8 g/dL (33.2-36.2); MEAN CORPUSCULAR VOLUME 86.6 fL (81-97); MEAN PLATELET VOLUME 8.5 fL (7.4-10.4); PLATELET COUNT 383 x10^3/uL (130-400); RED BLOOD COUNT 4.29 x10^6/uL (4.38-5.82)
[2018-01-31 15:19] LABS: ALANINE AMINOTRANSFERASE 26 U/L (12-78); ALKALINE PHOSPHATASE 85 U/L (45-117); BILIRUBIN,TOTAL 0.9 mg/dL (0.2-1.0); CREATININE 0.84 mg/dL (0.7-1.3); FREE T4 (FREE THYROXINE) 0.62 ng/dL (0.76-1.46); THYROID STIMULATING HORMONE 0.013 mIU/L (0.358-3.740); TOTAL PROTEIN 7.6 g/dL (6.4-8.2)
[2018-01-31 15:38] LABS: BASOPHILS # (AUTO) 0.07 x10^3/uL (0-0.1); BASOPHILS % (AUTO) 0 % (0-1); EOSINOPHILS # (AUTO) 0.22 x10^3/uL (0-0.4); EOSINOPHILS % (AUTO) 1 % (1-7); LYMPHOCYTES # (AUTO) 3.21 x10^3/uL (1-3.4); LYMPHOCYTES % (AUTO) 12 % (22-44); MONOCYTES # (AUTO) 1.84 x10^3/uL (0.2-0.8); MONOCYTES % (AUTO) 7 % (2-9); NEUTROPHILS # (AUTO) 21.27 x10^3/uL (1.8-6.8); NEUTROPHILS % (AUTO) 80 % (42-75)
[2018-01-31 15:40] LABS: <PLATELET ESTIMATE> ADEQUATE; <PLT MORPHOLOGY> NORMAL PLT MORPH; <RBC MORPHOLOGY> NORMAL
[2018-01-31] MEDS ORDERED: LABETALOL 5MG/ML, 20ML IVPush PRN (16:00)
[2018-01-31] MEDS ORDERED: ACETAMINOPHEN 325 MG TABLET PO PRN (16:00)
[2018-01-31] MEDS ORDERED: hydrALAzine 20 MG/ML, 1ML IVPush PRN (16:00)
[2018-01-31] MEDS: LINEZOLID PMX 600MG/300ML 300 ML IV SCH (18:07)
[2018-01-31] MEDS: ENOXAPARIN 40 MG/0.4 ML SQ SCH (18:07)
[2018-01-31] MEDS: LACTATED RINGERS 1,000 ML IV SCH (18:07)
[2018-01-31 19:57] VITALS: BP 107/67
[2018-01-31] MEDS: PIPERACILLIN/TAZO/PMX 4.5GM 100 ML IV SCH (21:30)
[2018-02-01 00:47] VITALS: BP 110/67
[2018-02-01 00:57] LABS: MICROSCOPIC AUTO
[2018-02-01 00:58] LABS: CULTURE INDICATED? YES
[2018-02-01 01:19] LABS: AMPHETAMINE SCREEN, URINE Negative (Negative); BARBITURATE SCREEN, URINE Negative (Negative); BENZODIAZEPINE SCREEN, URINE Negative (Negative); CANNABINOID SCREEN, URINE Negative (Negative); COCAINE SCREEN, URINE Negative (Negative); METHADONE SCREEN, URINE Negative (Negative); OPIATE SCREEN, URINE Negative (Negative)
[2018-02-01] MEDS: LACTATED RINGERS 1,000 ML IV SCH ×3 (03:26→20:20)
[2018-02-01 05:07] LABS: MEAN CORPUSCULAR HEMOGLOBIN 28.7 pg (27.5-34.5); MEAN CORPUSCULAR VOLUME 86.8 fL (81-97); MEAN PLATELET VOLUME 8.6 fL (7.4-10.4); PLATELET COUNT 320 x10^3/uL (130-400); RED BLOOD COUNT 3.73 x10^6/uL (4.38-5.82); RED CELL DISTRIBUTION WIDTH 16.7 % (9.4-14.8)
[2018-02-01] MEDS: PIPERACILLIN/TAZO/PMX 4.5GM 100 ML IV SCH ×3 (05:10→20:46)
[2018-02-01 05:14] LABS: CALCIUM 7.1 mg/dL (8.5-10.1); CHLORIDE 112 mmol/L (98-107)
[2018-02-01 05:20] LABS: ALANINE AMINOTRANSFERASE 20 U/L (12-78); ALBUMIN 2.4 g/dL (3.4-5.0); ALKALINE PHOSPHATASE 67 U/L (45-117); ANION GAP 7 mmol/L (5-15); CREATININE 0.69 mg/dL (0.7-1.3); TOTAL PROTEIN 6.1 g/dL (6.4-8.2)
[2018-02-01] MEDS ORDERED: MAGNESIUM SULFATE PMX 4GM/100M 100 ML IV ONE (05:30)
[2018-02-01] MEDS: LINEZOLID PMX 600MG/300ML 300 ML IV SCH ×2 (05:56→18:28)
[2018-02-01 06:01] LABS: BASOPHILS # (AUTO) 0.09 x10^3/uL (0-0.1); BASOPHILS % (AUTO) 1 % (0-1); EOSINOPHILS # (AUTO) 0.75 x10^3/uL (0-0.4); EOSINOPHILS % (AUTO) 4 % (1-7); LYMPHOCYTES # (AUTO) 4.52 x10^3/uL (1-3.4); LYMPHOCYTES % (AUTO) 24 % (22-44); MD SCAN; MONOCYTES # (AUTO) 1.84 x10^3/uL (0.2-0.8); MONOCYTES % (AUTO) 10 % (2-9); NEUTROPHILS # (AUTO) 11.64 x10^3/uL (1.8-6.8); NEUTROPHILS % (AUTO) 62 % (42-75)
[2018-02-01 07:46] VITALS: BP 125/57
[2018-02-01 13:18] VITALS: BP 124/71
[2018-02-01] MEDS: ERGOCALCIFEROL 50,000 UNIT CAPSULE PO SCH (13:33)
[2018-02-01] MEDS: ENOXAPARIN 40 MG/0.4 ML SQ SCH (17:00)
[2018-02-01] MEDS: CALCIUM CARBONATE 500 MG TABLET PO SCH ×2 (18:28→20:44)
[2018-02-01] MEDS ORDERED: MENING VAC A,C,Y,W-135 DIP/PF 0.5 ML AGE<55 IM-VACC ONE (18:30)
[2018-02-01] MEDS ORDERED: PNEUMOC 13-VALENT VACC, 0.5 ML IM-VACC ONE (18:30)
[2018-02-01] MEDS ORDERED: HAEMOPH B POLY CONJ-TET TOX/PF 10 MCG/0.5 ML INJ IM-VACC ONE (18:30)
[2018-02-01 19:05] VITALS: BP 132/80
[2018-02-02 01:32] VITALS: BP 127/79
[2018-02-02] MEDS: LACTATED RINGERS 1,000 ML IV SCH ×3 (02:59→16:44)
[2018-02-02] MEDS: PIPERACILLIN/TAZO/PMX 4.5GM 100 ML IV SCH ×3 (04:49→20:33)
[2018-02-02] MEDS: LINEZOLID PMX 600MG/300ML 300 ML IV SCH ×2 (05:35→16:43)
[2018-02-02 06:11] LABS: BASOPHILS % (AUTO) 1 % (0-1); EOSINOPHILS # (AUTO) 1.28 x10^3/uL (0-0.4); EOSINOPHILS % (AUTO) 9 % (1-7); LYMPHOCYTES # (AUTO) 4.01 x10^3/uL (1-3.4); LYMPHOCYTES % (AUTO) 27 % (22-44); MD NO; MEAN CORPUSCULAR HEMOGLOBIN 28.5 pg (27.5-34.5); MEAN CORPUSCULAR HGB CONC 32.7 g/dL (33.2-36.2); MEAN CORPUSCULAR VOLUME 87.1 fL (81-97); MEAN PLATELET VOLUME 8.8 fL (7.4-10.4); MONOCYTES # (AUTO) 1.05 x10^3/uL (0.2-0.8); MONOCYTES % (AUTO) 7 % (2-9); NEUTROPHILS % (AUTO) 56 % (42-75); PLATELET COUNT 349 x10^3/uL (130-400); RED BLOOD COUNT 3.88 x10^6/uL (4.38-5.82); RED CELL DISTRIBUTION WIDTH 17.3 % (9.4-14.8)
[2018-02-02 06:12] LABS: HCT (SEDRATE) 33.8 % (39.2-51.8)
[2018-02-02 07:38] VITALS: BP 126/81
[2018-02-02] MEDS ORDERED: HAEMOPH B POLY CONJ-TET TOX/PF 10 MCG/0.5 ML INJ IM-VACC ONE (09:00)
[2018-02-02] MEDS: CALCIUM CARBONATE 500 MG TABLET PO SCH ×3 (10:10→20:32)
[2018-02-02 14:27] VITALS: BP 123/76
[2018-02-02] MEDS: ENOXAPARIN 40 MG/0.4 ML SQ SCH (16:44)
[2018-02-02 20:52] VITALS: BP 148/88
[2018-02-03 03:09] VITALS: BP 129/86
[2018-02-03] MEDS: LACTATED RINGERS 1,000 ML IV SCH ×3 (04:11→17:07)
[2018-02-03] MEDS: PIPERACILLIN/TAZO/PMX 4.5GM 100 ML IV SCH ×3 (04:44→20:27)
[2018-02-03] MEDS: LINEZOLID PMX 600MG/300ML 300 ML IV SCH (05:18)
[2018-02-03 05:46] LABS: BASOPHILS # (AUTO) 0.24 x10^3/uL (0-0.1); BASOPHILS % (AUTO) 2 % (0-1); EOSINOPHILS # (AUTO) 1.14 x10^3/uL (0-0.4); EOSINOPHILS % (AUTO) 10 % (1-7); LYMPHOCYTES # (AUTO) 3.86 x10^3/uL (1-3.4); LYMPHOCYTES % (AUTO) 34 % (22-44); MD NO; MEAN CORPUSCULAR HEMOGLOBIN 27.8 pg (27.5-34.5); MEAN CORPUSCULAR HGB CONC 32.3 g/dL (33.2-36.2); MEAN CORPUSCULAR VOLUME 85.9 fL (81-97); MEAN PLATELET VOLUME 8.6 fL (7.4-10.4); MONOCYTES # (AUTO) 0.93 x10^3/uL (0.2-0.8); MONOCYTES % (AUTO) 8 % (2-9); NEUTROPHILS # (AUTO) 5.06 x10^3/uL (1.8-6.8); NEUTROPHILS % (AUTO) 45 % (42-75); PLATELET COUNT 403 x10^3/uL (130-400); RED BLOOD COUNT 3.95 x10^6/uL (4.38-5.82); RED CELL DISTRIBUTION WIDTH 17.5 % (9.4-14.8)
[2018-02-03 05:48] LABS: HCT (SEDRATE) 33.8 % (39.2-51.8)
[2018-02-03 07:50] VITALS: BP 133/87
[2018-02-03] MEDS: CALCIUM CARBONATE 500 MG TABLET PO SCH ×3 (09:36→20:34)
[2018-02-03 12:17] VITALS: BP 166/89
[2018-02-03] MEDS: ENOXAPARIN 40 MG/0.4 ML SQ SCH (17:06)
[2018-02-03 19:47] VITALS: BP 159/66
[2018-02-03] MEDS ORDERED: OMNIPAQUE 350 MG/ML, 100ML BOTTLE ONE (22:50)
[2018-02-04] MEDS: LACTATED RINGERS 1,000 ML IV SCH ×4 (00:02→22:27)
[2018-02-04 00:55] VITALS: BP 119/68
[2018-02-04] MEDS: PIPERACILLIN/TAZO/PMX 4.5GM 100 ML IV SCH ×3 (04:52→22:34)
[2018-02-04] MEDS ORDERED: FENTANYL PF 250 MCG/5ML ONE (06:16)
[2018-02-04] MEDS ORDERED: MIDAZOLAM 1 MG/ML, 2ML ONE (06:16)
[2018-02-04] MEDS ORDERED: PROPOFOL 10 MG/ML, 20ML ONE (06:20)
[2018-02-04] MEDS ORDERED: WATER-INJECTION,STERILE 10 ML IV ONE (06:24)
[2018-02-04] MEDS ORDERED: CEFAZOLIN 1,000 MG ONE ×2 (06:24)
[2018-02-04] MEDS ORDERED: LIDOCAINE/PF 1%, 30ML ONE (06:46)
[2018-02-04] MEDS ORDERED: EPINEPHRINE 1 MG/ML, 1ML ONE (06:46)
[2018-02-04] MEDS ORDERED: BACITRACIN OINT 500U/GM, 15 GM ONE (06:46)
[2018-02-04] MEDS ORDERED: MINERAL OIL 10 ML VIAL MC ONE (06:46)
[2018-02-04] MEDS ORDERED: ONDANSETRON ODT 8 MG PO PRN (07:00)
[2018-02-04] MEDS ORDERED: LABETALOL 5MG/ML, 20ML IV PRN (07:00)
[2018-02-04] MEDS ORDERED: MORPHINE SULFATE 4 MG/ML, 1ML IVPush PRN (07:00)
[2018-02-04] MEDS ORDERED: PROMETHAZINE 25 MG/ML, 1ML IV PRN (07:00)
[2018-02-04] MEDS ORDERED: hydrALAzine 20 MG/ML, 1ML IV PRN (07:00)
[2018-02-04] MEDS ORDERED: HYDROmorphone 1 MG/ML, 1ML IV PRN (07:00)
[2018-02-04] MEDS ORDERED: OXYcodone 5 MG/5 ML ORAL.SOL UDC PO PRN (07:00)
[2018-02-04] MEDS ORDERED: PROMETHAZINE 25 MG SUPP PR PRN (07:00)
[2018-02-04] MEDS ORDERED: MEPERIDINE/PF 25MG/0.5ML IVPush PRN (07:00)
[2018-02-04] MEDS ORDERED: PROMETHAZINE 12.5 MG SUPP PR PRN (07:00)
[2018-02-04] MEDS ORDERED: FENTANYL PF 100 MCG/2ML ONE (08:23)
[2018-02-04] MEDS ORDERED: OXYcodone 5 MG/5 ML ORAL.SOL UDC ONE (08:23)
[2018-02-04] MEDS ORDERED: ACETAMINOPHEN 650 MG/20.3 ML UDC ONE (08:23)
[2018-02-04] MEDS: FENTANYL PF 100 MCG/2ML IV PRN ×2 (08:27→08:37)
[2018-02-04] MEDS ORDERED: GLYCOPYRROLATE 0.4 MG/2 ML, 2ML ONE (08:43)
[2018-02-04] MEDS ORDERED: GLYCOPYRROLATE 0.2MG/1ML, 5ML IVPush ONE (09:00)
[2018-02-04] MEDS: CALCIUM CARBONATE 500 MG TABLET PO SCH ×3 (09:00→21:00)
[2018-02-04 09:15] VITALS: BP 149/93
[2018-02-04 15:08] VITALS: BP 118/71
[2018-02-04] MEDS: ENOXAPARIN 40 MG/0.4 ML SQ SCH (17:56)
[2018-02-04 19:37] VITALS: BP 124/77
[2018-02-05 04:36] VITALS: BP 135/63
[2018-02-05 05:20] LABS: BASOPHILS # (AUTO) 0.02 x10^3/uL (0-0.1); BASOPHILS % (AUTO) 0 % (0-1); EOSINOPHILS # (AUTO) 1.36 x10^3/uL (0-0.4); EOSINOPHILS % (AUTO) 12 % (1-7); LYMPHOCYTES # (AUTO) 3.74 x10^3/uL (1-3.4); LYMPHOCYTES % (AUTO) 32 % (22-44); MD NO; MEAN CORPUSCULAR HEMOGLOBIN 28.3 pg (27.5-34.5); MEAN CORPUSCULAR HGB CONC 32.5 g/dL (33.2-36.2); MEAN CORPUSCULAR VOLUME 87.3 fL (81-97); MEAN PLATELET VOLUME 8.4 fL (7.4-10.4); MONOCYTES # (AUTO) 0.69 x10^3/uL (0.2-0.8); MONOCYTES % (AUTO) 6 % (2-9); NEUTROPHILS % (AUTO) 50 % (42-75); PLATELET COUNT 481 x10^3/uL (130-400); RED CELL DISTRIBUTION WIDTH 17.7 % (9.4-14.8)
[2018-02-05] MEDS: PIPERACILLIN/TAZO/PMX 4.5GM 100 ML IV SCH ×3 (06:03→21:01)
[2018-02-05 07:38] VITALS: BP 143/88
[2018-02-05] MEDS: CALCIUM CARBONATE 500 MG TABLET PO SCH ×4 (09:00→21:01)
[2018-02-05 13:11] VITALS: BP 151/88
[2018-02-05] MEDS: LACTATED RINGERS 1,000 ML IV SCH ×4 (14:46→22:15)
[2018-02-05] MEDS: ENOXAPARIN 40 MG/0.4 ML SQ SCH (17:00)
[2018-02-05 20:06] VITALS: BP 131/82
[2018-02-06 01:35] VITALS: BP 159/74
[2018-02-06] MEDS: PIPERACILLIN/TAZO/PMX 4.5GM 100 ML IV SCH ×3 (05:39→22:33)
[2018-02-06] MEDS: LACTATED RINGERS 1,000 ML IV SCH ×2 (05:42→12:10)
[2018-02-06 08:17] VITALS: BP 153/97
[2018-02-06] MEDS: RIFAMPIN 300 MG CAPSULE PO SCH (09:00)
[2018-02-06] MEDS: CALCIUM CARBONATE 500 MG TABLET PO SCH ×3 (10:38→21:46)
[2018-02-06 13:49] VITALS: BP 147/94
[2018-02-06] MEDS: ENOXAPARIN 40 MG/0.4 ML SQ SCH (16:19)
[2018-02-06 18:57] VITALS: BP 152/96
[2018-02-07 01:05] VITALS: BP 150/83
[2018-02-07] MEDS: LACTATED RINGERS 1,000 ML IV SCH ×2 (04:56→16:00)
[2018-02-07] MEDS: PIPERACILLIN/TAZO/PMX 4.5GM 100 ML IV SCH ×3 (06:12→22:25)
[2018-02-07] MEDS: CALCIUM CARBONATE 500 MG TABLET PO SCH ×3 (07:31→21:43)
[2018-02-07] MEDS: RIFAMPIN 300 MG CAPSULE PO SCH (07:34)
[2018-02-07 08:05] VITALS: BP 158/97
[2018-02-07 13:06] VITALS: BP 143/86
[2018-02-07] MEDS: ENOXAPARIN 40 MG/0.4 ML SQ SCH (17:00)
[2018-02-07 20:00] VITALS: BP 151/81
[2018-02-08 01:59] VITALS: BP 144/81
[2018-02-08] MEDS: PIPERACILLIN/TAZO/PMX 4.5GM 100 ML IV SCH (06:17)
[2018-02-08 07:53] VITALS: BP 137/92
[2018-02-08] MEDS: LACTATED RINGERS 1,000 ML IV SCH (08:00)
[2018-02-08] MEDS: CALCIUM CARBONATE 500 MG TABLET PO SCH ×2 (08:01→16:00)
[2018-02-08] MEDS: RIFAMPIN 300 MG CAPSULE PO SCH (08:02)
[2018-02-08 09:58] LABS: BASOPHILS # (AUTO) 0.05 x10^3/uL (0-0.1); BASOPHILS % (AUTO) 1 % (0-1); EOSINOPHILS # (AUTO) 1.38 x10^3/uL (0-0.4); EOSINOPHILS % (AUTO) 14 % (1-7); LYMPHOCYTES # (AUTO) 2.76 x10^3/uL (1-3.4); LYMPHOCYTES % (AUTO) 28 % (22-44); MD NO; MEAN CORPUSCULAR HGB CONC 32.3 g/dL (33.2-36.2); MEAN CORPUSCULAR VOLUME 86.7 fL (81-97); MEAN PLATELET VOLUME 7.8 fL (7.4-10.4); MONOCYTES # (AUTO) 0.76 x10^3/uL (0.2-0.8); MONOCYTES % (AUTO) 8 % (2-9); NEUTROPHILS # (AUTO) 4.97 x10^3/uL (1.8-6.8); NEUTROPHILS % (AUTO) 50 % (42-75); PLATELET COUNT 563 x10^3/uL (130-400); RED BLOOD COUNT 4.43 x10^6/uL (4.38-5.82); RED CELL DISTRIBUTION WIDTH 18.1 % (9.4-14.8)
[2018-02-08 10:11] LABS: ALBUMIN 2.9 g/dL (3.4-5.0); ANION GAP 11 mmol/L (5-15); CHLORIDE 106 mmol/L (98-107)
[2018-02-08 10:14] LABS: ALANINE AMINOTRANSFERASE 17 U/L (12-78); ALKALINE PHOSPHATASE 70 U/L (45-117); BILIRUBIN,TOTAL 0.7 mg/dL (0.2-1.0); TOTAL PROTEIN 7.4 g/dL (6.4-8.2)
[2018-02-08] MEDS: ERGOCALCIFEROL 50,000 UNIT CAPSULE PO SCH (13:09)
[2018-02-08] MEDS ORDERED: RIFA300C3 PO (13:56)
[2018-02-08] MEDS ORDERED: LEVO50TA PO (13:56)
[2018-02-08 14:27] VITALS: BP 137/85
[2018-02-08] MEDS: ENOXAPARIN 40 MG/0.4 ML SQ SCH (16:58)
[2018-02-09] MEDS ORDERED: LEVOTHYROXINE 50 MCG TABLET PO SCH (06:00)
== END 2018-02-08 18:20 | DRG 854 ==
LOC: ED 16:09 → 3NE 16:26
PROVIDERS: ADMIT Internal Medicine; ATTEND Internal Medicine
PROC: 0HRLX74 Replacement of Left Lower Leg Skin with Autologous Tissue Substitute, Partial Thickness, External Approach (ICD-10-PCS; 2018-02-04)
PROC: 0HBJXZZ Excision of Left Upper Leg Skin, External Approach (ICD-10-PCS; 2018-02-04)
PROC: 0HRLX74 Replacement of Left Lower Leg Skin with Autologous Tissue Substitute, Partial Thickness, External Approach (ICD-10-PCS; principal; 2018-02-04 07:30)
DX: A41.9 Sepsis, unspecified organism (principal); I50.32 Chronic diastolic (congestive) heart failure; I27.20 Pulmonary hypertension, unspecified; E44.1 Mild protein-calorie malnutrition; E83.51 Hypocalcemia; L03.116 Cellulitis of left lower limb; A15.8 Other respiratory tuberculosis; E05.00 Thyrotoxicosis with diffuse goiter without thyrotoxic crisis or storm; Z66 Do not resuscitate; E89.0 Postprocedural hypothyroidism; I87.8 Other specified disorders of veins; K05.6 Periodontal disease, unspecified; K11.20 Sialoadenitis, unspecified; R65.20 Severe sepsis without septic shock; W34.00XA Accidental discharge from unspecified firearms or gun, initial encounter; Z59.0 Homelessness; Z68.26 Body mass index [BMI] 26.0-26.9, adult; Z79.899 Other long term (current) drug therapy; Z90.49 Acquired absence of other specified parts of digestive tract; Z90.81 Acquired absence of spleen; Z91.14 Patient's other noncompliance with medication regimen; Z23 Encounter for immunization
CPT/HCPCS: 36415; 71045; 74177; 80053; 80307; 81001; 82306; 82330; 83605; 83735; 83970; 84145; 84439; 84443; 84481; 85025; 85651; 86480; 86704; 86706; 86803; 87040; 87081; 87086; 87106; 87340; 87806; 90648; 90734; 93005; 96361; 96365; J0171; J0690; J1650; J2020; J2250; J2543; J2704; J3010; J3490; Q9967; G0009; G0475; J3475; J7030; J7120

== ENCOUNTER 2018-07-17 10:43 | Inpatient (IN) | payer MEDICAID ==
[~2018-07-17] VITALS: Ht 177.8 cm; Wt 82.9 kg
[~2018-07-17 10:43] MED LIST changes: +LEVO50TA PO; +RIFA300C3 PO
[2018-07-17 11:28] LABS: MEAN CORPUSCULAR HEMOGLOBIN 30.4 pg (27.5-34.5); MEAN CORPUSCULAR HGB CONC 33.1 g/dL (33.2-36.2); MEAN CORPUSCULAR VOLUME 91.8 fL (81-97); MEAN PLATELET VOLUME 8.1 fL (7.4-10.4); PLATELET COUNT 398 x10^3/uL (130-400); RED CELL DISTRIBUTION WIDTH 17.6 % (9.4-14.8)
[2018-07-17 11:33] LABS: MICROSCOPIC AUTO
[2018-07-17 11:36] LABS: INTERNATIONAL NORMALIZED RATIO 1.02 (0.93-1.1); PROTHROMBIN TIME 10.6 Seconds (9.6-11.5)
[2018-07-17 11:37] LABS: ALANINE AMINOTRANSFERASE 16 U/L (12-78); ALBUMIN 3.6 g/dL (3.4-5.0); ANION GAP 10 mmol/L (5-15); CALCIUM 8.1 mg/dL (8.5-10.1); CHLORIDE 104 mmol/L (98-107); CREATININE 0.85 mg/dL (0.7-1.3)
[2018-07-17 11:39] LABS: CULTURE INDICATED? NO
[2018-07-17 11:42] LABS: ALKALINE PHOSPHATASE 83 U/L (45-117); BILIRUBIN,TOTAL 1.3 mg/dL (0.2-1.0); TOTAL PROTEIN 8.2 g/dL (6.4-8.2)
[2018-07-17 11:49] LABS: TROPONIN I < 0.015 ng/mL (0.000-0.045)
[2018-07-17] MEDS ORDERED: POTASSIUM CHLORIDE 40 MEQ in SODIUM CHLORIDE 0.9% 500 ML IV ONE (12:00)
[2018-07-17] MEDS ORDERED: SODIUM CHLORIDE 0.9% 1,000ML IVBOLUS ONE (12:00)
[2018-07-17] MEDS ORDERED: PIPERACILLIN/TAZO/PMX 3.375GM 50 ML IV ONE (12:00)
[2018-07-17] MEDS ORDERED: VANCOMYCIN PER PHARMACY MC PRN ×3 (12:00→17:30)
[2018-07-17 12:07] LABS: BASOPHILS # (AUTO) 0.02 x10^3/uL (0-0.1); BASOPHILS % (AUTO) 0 % (0-1); EOSINOPHILS # (AUTO) 0.07 x10^3/uL (0-0.4); EOSINOPHILS % (AUTO) 0 % (1-7); LYMPHOCYTES # (AUTO) 1.65 x10^3/uL (1-3.4); LYMPHOCYTES % (AUTO) 7 % (22-44); MD SCAN; MONOCYTES # (AUTO) 0.46 x10^3/uL (0.2-0.8); MONOCYTES % (AUTO) 2 % (2-9); NEUTROPHILS # (AUTO) 22.59 x10^3/uL (1.8-6.8); NEUTROPHILS % (AUTO) 91 % (42-75)
[2018-07-17] MEDS ORDERED: PIPERACILLIN/TAZO/PMX 3.375GM 50 ML ONE (12:17)
[2018-07-17] MEDS ORDERED: VANCOMYCIN 1,500 MG in SODIUM CHLORIDE 0.9% 250 ML IV ONE (12:30)
[2018-07-17] MEDS ORDERED: IBUPROFEN 600 MG TABLET PO PRN (13:30)
[2018-07-17] MEDS ORDERED: ONDANSETRON 2MG/ML, 2ML IVPush PRN (13:30)
[2018-07-17] MEDS ORDERED: LABETALOL 5MG/ML, 20ML IVPush PRN (13:30)
[2018-07-17] MEDS ORDERED: ONDANSETRON ODT 4 MG PO PRN (13:30)
[2018-07-17] MEDS ORDERED: ACETAMINOPHEN 325 MG TABLET PO PRN (13:30)
[2018-07-17] MEDS ORDERED: hydrALAzine 20 MG/ML, 1ML IVPush PRN (13:30)
[2018-07-17 13:51] LABS: ANION GAP 9 mmol/L (5-15); CHLORIDE 106 mmol/L (98-107); CREATININE 0.83 mg/dL (0.7-1.3)
[2018-07-17] MEDS: PIPERACILLIN/TAZO/PMX 4.5GM 100 ML IV SCH ×2 (15:43→23:37)
[2018-07-17 15:44] VITALS: BP 128/74
[2018-07-17] MEDS ORDERED: POTASSIUM CHLORIDE 20 MEQ TAB.ER.PRT PO ONE (17:00)
[2018-07-17] MEDS: ENOXAPARIN 40 MG/0.4 ML SQ SCH (17:51)
[2018-07-17] MEDS: VANCOMYCIN 1,500 MG in SODIUM CHLORIDE 0.9% 250 ML IV SCH (17:54)
[2018-07-17] MEDS ORDERED: PHARMACOKINETIC CONSULTATION MC ONE (18:00)
[2018-07-17] MEDS ORDERED: PHARMACOKINETIC MONITORING MC PRN (18:00)
[2018-07-17 18:53] VITALS: BP 101/61
[2018-07-18 01:55] VITALS: BP 108/66
[2018-07-18 05:30] LABS: MEAN CORPUSCULAR HEMOGLOBIN 31.1 pg (27.5-34.5); MEAN CORPUSCULAR HGB CONC 33.4 g/dL (33.2-36.2); MEAN PLATELET VOLUME 8.2 fL (7.4-10.4); PLATELET COUNT 364 x10^3/uL (130-400); RED BLOOD COUNT 3.93 x10^6/uL (4.38-5.82); RED CELL DISTRIBUTION WIDTH 17.7 % (9.4-14.8)
[2018-07-18 06:10] LABS: BASOPHILS # (AUTO) 0.06 x10^3/uL (0-0.1); BASOPHILS % (AUTO) 0 % (0-1); EOSINOPHILS # (AUTO) 0.43 x10^3/uL (0-0.4); EOSINOPHILS % (AUTO) 3 % (1-7); LYMPHOCYTES # (AUTO) 2.85 x10^3/uL (1-3.4); LYMPHOCYTES % (AUTO) 17 % (22-44); MD SCAN; MONOCYTES # (AUTO) 1.46 x10^3/uL (0.2-0.8); MONOCYTES % (AUTO) 9 % (2-9); NEUTROPHILS % (AUTO) 71 % (42-75)
[2018-07-18 08:22] VITALS: BP 120/74
[2018-07-18] MEDS: PIPERACILLIN/TAZO/PMX 4.5GM 100 ML IV SCH ×2 (08:57→15:30)
[2018-07-18] MEDS: VANCOMYCIN 1,500 MG in SODIUM CHLORIDE 0.9% 250 ML IV SCH (11:46)
[2018-07-18] MEDS ORDERED: AMOX1TAB64 PO (12:08)
[2018-07-18] MEDS ORDERED: ACET325T14 PO (12:08)
[2018-07-18] MEDS ORDERED: DOXY100T10 PO (12:08)
[2018-07-18 12:58] VITALS: BP 130/78
[2018-07-18] MEDS: ENOXAPARIN 40 MG/0.4 ML SQ SCH (13:30)
== END 2018-07-18 15:46 | disposition home or self-care (01) | DRG 871 ==
LOC: ED 11:30 → EDIP 12:41 → 3NE 13:39
PROVIDERS: ADMIT Internal Medicine; ATTEND Internal Medicine
DX: A41.9 Sepsis, unspecified organism (principal); J18.9 Pneumonia, unspecified organism; J96.90 Respiratory failure, unspecified, unspecified whether with hypoxia or hypercapnia; L03.115 Cellulitis of right lower limb; I50.32 Chronic diastolic (congestive) heart failure; L03.116 Cellulitis of left lower limb; I11.0 Hypertensive heart disease with heart failure; F17.200 Nicotine dependence, unspecified, uncomplicated; E87.6 Hypokalemia; I27.20 Pulmonary hypertension, unspecified; Z90.81 Acquired absence of spleen; Z90.49 Acquired absence of other specified parts of digestive tract; Z59.0 Homelessness; Z79.899 Other long term (current) drug therapy
CPT/HCPCS: 36415; 71045; 80048; 80053; 81001; 83605; 83735; 83880; 84443; 84484; 85025; 85610; 85730; 87040; 93005; 93970; 96374; 99291; G0378; J1650; J2543; J3370; J7030; J7050

== ENCOUNTER 2018-08-12 08:42 | Observation (INO) | payer MEDICAID ==
[~2018-08-12] VITALS: Ht 177.8 cm; Wt 80.1 kg
[~2018-08-12 08:42] MED LIST changes: +ACET325T14 PO; +AMOX1TAB64 PO; +DOXY100T10 PO
[2018-08-12] MEDS ORDERED: SODIUM CHLORIDE FLUSH 10ML SYR IVF ONE (09:00)
[2018-08-12 09:40] LABS: ALANINE AMINOTRANSFERASE 18 U/L (12-78); ALBUMIN 3.4 g/dL (3.4-5.0); ANION GAP 9 mmol/L (5-15); CALCIUM 8.2 mg/dL (8.5-10.1); CHLORIDE 106 mmol/L (98-107); CREATININE 0.94 mg/dL (0.7-1.3)
[2018-08-12 09:44] LABS: ALKALINE PHOSPHATASE 84 U/L (45-117); BILIRUBIN,TOTAL 0.7 mg/dL (0.2-1.0); TOTAL PROTEIN 8.9 g/dL (6.4-8.2); TROPONIN I < 0.015 ng/mL (0.000-0.045)
[2018-08-12 09:58] LABS: BASOPHILS # (AUTO) 0.03 x10^3/uL (0-0.1); BASOPHILS % (AUTO) 0 % (0-1); EOSINOPHILS # (AUTO) 0.11 x10^3/uL (0-0.4); EOSINOPHILS % (AUTO) 1 % (1-7); LYMPHOCYTES # (AUTO) 1.65 x10^3/uL (1-3.4); LYMPHOCYTES % (AUTO) 11 % (22-44); MD NO; MEAN CORPUSCULAR HEMOGLOBIN 29.9 pg (27.5-34.5); MEAN CORPUSCULAR HGB CONC 32.5 g/dL (33.2-36.2); MEAN CORPUSCULAR VOLUME 91.9 fL (81-97); MEAN PLATELET VOLUME 8.3 fL (7.4-10.4); MONOCYTES # (AUTO) 0.64 x10^3/uL (0.2-0.8); MONOCYTES % (AUTO) 4 % (2-9); NEUTROPHILS # (AUTO) 12.22 x10^3/uL (1.8-6.8); NEUTROPHILS % (AUTO) 83 % (42-75); PLATELET COUNT 512 x10^3/uL (130-400); RED BLOOD COUNT 4.37 x10^6/uL (4.38-5.82); RED CELL DISTRIBUTION WIDTH 16.7 % (9.4-14.8)
[2018-08-12] MEDS ORDERED: AMPICILLIN/SULBACTAM 3 GM in SODIUM CHLORIDE 0.9% 100 ML IV ONE (10:30)
[2018-08-12] MEDS ORDERED: SODIUM CHLORIDE 0.9% 1,000 ML IV SCH (11:04)
[2018-08-12] MEDS ORDERED: ACETAMINOPHEN 325 MG TABLET PO PRN (11:30)
[2018-08-12] MEDS ORDERED: POLYETHYLENE GLYCOL 17 GM PACKET PO PRN (11:30)
[2018-08-12] MEDS ORDERED: hydrALAzine 20 MG/ML, 1ML IVPush PRN (11:30)
[2018-08-12] MEDS ORDERED: BISACODYL 10 MG SUPP PR PRN (11:30)
[2018-08-12] MEDS ORDERED: DOCUSATE 100 MG CAPSULE PO PRN (11:30)
[2018-08-12] MEDS ORDERED: ONDANSETRON 2MG/ML, 2ML IVPush PRN (11:30)
[2018-08-12] MEDS: ENOXAPARIN 40 MG/0.4 ML SQ SCH ×2 (14:00→14:34)
[2018-08-12] MEDS: KETOROLAC 30 MG/1 ML IV PRN (14:37)
[2018-08-12 14:47] VITALS: BP 113/57
[2018-08-12 15:41] VITALS: BP 109/66
[2018-08-12 16:08] LABS: RAPID INFLUENZA A Negative (Negative); RAPID INFLUENZA B Negative (Negative)
[2018-08-12 16:12] LABS: MICROSCOPIC AUTO
[2018-08-12 16:13] LABS: CULTURE INDICATED? NO
[2018-08-12 20:04] VITALS: BP 102/71
[2018-08-13 03:01] VITALS: BP 104/66
[2018-08-13 05:23] LABS: BASOPHILS # (AUTO) 0.04 x10^3/uL (0-0.1); BASOPHILS % (AUTO) 0 % (0-1); EOSINOPHILS # (AUTO) 0.12 x10^3/uL (0-0.4); EOSINOPHILS % (AUTO) 1 % (1-7); LYMPHOCYTES % (AUTO) 16 % (22-44); MD NO; MEAN CORPUSCULAR HEMOGLOBIN 30.4 pg (27.5-34.5); MEAN CORPUSCULAR HGB CONC 32.9 g/dL (33.2-36.2); MEAN CORPUSCULAR VOLUME 92.3 fL (81-97); MEAN PLATELET VOLUME 8.1 fL (7.4-10.4); MONOCYTES # (AUTO) 0.72 x10^3/uL (0.2-0.8); MONOCYTES % (AUTO) 6 % (2-9); NEUTROPHILS # (AUTO) 9.86 x10^3/uL (1.8-6.8); NEUTROPHILS % (AUTO) 77 % (42-75); PLATELET COUNT 444 x10^3/uL (130-400); RED BLOOD COUNT 4.15 x10^6/uL (4.38-5.82); RED CELL DISTRIBUTION WIDTH 17.3 % (9.4-14.8)
[2018-08-13 05:29] LABS: ANION GAP 9 mmol/L (5-15); CALCIUM 7.8 mg/dL (8.5-10.1); CHLORIDE 108 mmol/L (98-107); CREATININE 0.83 mg/dL (0.7-1.3)
[2018-08-13 07:51] VITALS: BP 127/68
[2018-08-13] MEDS: KETOROLAC 30 MG/1 ML IV PRN (10:19)
[2018-08-13] MEDS: ENOXAPARIN 40 MG/0.4 ML SQ SCH (13:55)
[2018-08-13 13:57] VITALS: BP 123/70
[2018-08-13 19:31] VITALS: BP 111/76
[2018-08-14 02:25] VITALS: BP 144/74
[2018-08-14 05:28] LABS: ANION GAP 9 mmol/L (5-15); CALCIUM 7.8 mg/dL (8.5-10.1); CHLORIDE 107 mmol/L (98-107); CREATININE 0.79 mg/dL (0.7-1.3)
[2018-08-14 05:35] LABS: MEAN CORPUSCULAR HEMOGLOBIN 29.6 pg (27.5-34.5); MEAN CORPUSCULAR HGB CONC 32.2 g/dL (33.2-36.2); MEAN CORPUSCULAR VOLUME 92.1 fL (81-97); MEAN PLATELET VOLUME 8.1 fL (7.4-10.4); PLATELET COUNT 452 x10^3/uL (130-400); RED BLOOD COUNT 4.52 x10^6/uL (4.38-5.82); RED CELL DISTRIBUTION WIDTH 16.8 % (9.4-14.8)
[2018-08-14 05:59] LABS: BASOPHILS % (AUTO) 1 % (0-1); EOSINOPHILS # (AUTO) 0.54 x10^3/uL (0-0.4); EOSINOPHILS % (AUTO) 7 % (1-7); LYMPHOCYTES # (AUTO) 1.95 x10^3/uL (1-3.4); LYMPHOCYTES % (AUTO) 26 % (22-44); MD SCAN; MONOCYTES # (AUTO) 0.74 x10^3/uL (0.2-0.8); MONOCYTES % (AUTO) 10 % (2-9); NEUTROPHILS % (AUTO) 55 % (42-75)
[2018-08-14 08:31] VITALS: BP 130/96
[2018-08-14 13:43] VITALS: BP 133/91
== END 2018-08-14 16:30 | disposition home or self-care (01) ==
LOC: ED 09:22 → EDIP 10:25 → INTOOBSV 10:25 → 3NW 11:56
PROVIDERS: ADMIT Internal Medicine; ATTEND Internal Medicine
DX: R65.10 Systemic inflammatory response syndrome (SIRS) of non-infectious origin without acute organ dysfunction (principal); S81.802D Unspecified open wound, left lower leg, subsequent encounter; I50.32 Chronic diastolic (congestive) heart failure; E86.0 Dehydration; D72.829 Elevated white blood cell count, unspecified; I11.0 Hypertensive heart disease with heart failure; F17.200 Nicotine dependence, unspecified, uncomplicated; L03.116 Cellulitis of left lower limb; I27.20 Pulmonary hypertension, unspecified; Z59.0 Homelessness; X58.XXXD Exposure to other specified factors, subsequent encounter; Z90.81 Acquired absence of spleen
CPT/HCPCS: 36415; 71045; 80048; 80053; 81001; 83605; 84484; 85025; 87040; 87400; 93005; 96365; 96375; 96376; 99284; G0378; J0295; J1885; J7030; J1650

== ENCOUNTER 2018-10-18 21:39 | Inpatient (IN) | payer MEDICAID, OTHER ==
[~2018-10-18] VITALS: Ht 177.8 cm; Wt 88.8 kg
--- NOTE | 2018-10-18 21:54 | NUR ---
BIB [facility] WITH C/O WORSENING LEFT LEG PAIN, PT RECENTLY SEEN AT HOSPITAL AT COMPLETED ABX FEW WEEKS AGO FOR LEFT LEG CELLULITIS, LEFT WELCH WITH NECROTIC AREA, PT ABLE TO AMBULATE, FSBS-110, PULSE 110, 97% ON R/A, B/P-180/92. ASSISTED PT INTO GOWN, MONITORS APPLIED, SIDERAILS UP X2, CALL LIGHT WITHIN REACH. AWAITING ERP FOR EVAL AND ORDERS
--- NOTE | 2018-10-18 22:11 | NUR ---
PT HAS WOUND TO LEFT LOWER LEG, UNABLE TO OBTAIN PHOTO DUE TO ED CAMERA NOT WORKING
--- NOTE | 2018-10-18 22:59 | NUR ---
LAB CALLED TO REDRAW PT FOR CLOTTED BLOOD SAMPLE.
[2018-10-18 23:02] LABS: ALANINE AMINOTRANSFERASE 17 U/L (12-78); ANION GAP 6 mmol/L (5-15); CALCIUM 7.9 mg/dL (8.5-10.1); CHLORIDE 110 mmol/L (98-107); CREATININE 0.71 mg/dL (0.7-1.3)
[2018-10-18 23:05] LABS: ALKALINE PHOSPHATASE 73 U/L (45-117); BILIRUBIN,TOTAL 0.3 mg/dL (0.2-1.0)
--- NOTE | 2018-10-18 23:18 | NUR ---
JUDO TEACHER AT PT;S BEDSIDE FOR LAB DRAW
--- NOTE | 2018-10-18 23:21 | NUR ---
PT RESTING ON GURPHOEBE, DENIES NEEDS AT THIS TIME, CALL LIGHT WITHIN REACH. AWAITING LAB RESULTS
[2018-10-18 23:29] LABS: BASOPHILS # (AUTO) 0.11 x10^3/uL (0-0.1); BASOPHILS % (AUTO) 1 % (0-1); EOSINOPHILS # (AUTO) 0.49 x10^3/uL (0-0.4); EOSINOPHILS % (AUTO) 4 % (1-7); LYMPHOCYTES # (AUTO) 2.34 x10^3/uL (1-3.4); LYMPHOCYTES % (AUTO) 20 % (22-44); MD NO; MEAN CORPUSCULAR HEMOGLOBIN 29.3 pg (27.5-34.5); MEAN CORPUSCULAR HGB CONC 32.5 g/dL (33.2-36.2); MEAN PLATELET VOLUME 7.5 fL (7.4-10.4); MONOCYTES # (AUTO) 0.65 x10^3/uL (0.2-0.8); MONOCYTES % (AUTO) 6 % (2-9); NEUTROPHILS # (AUTO) 7.97 x10^3/uL (1.8-6.8); NEUTROPHILS % (AUTO) 69 % (42-75); PLATELET COUNT 538 x10^3/uL (130-400); RED BLOOD COUNT 4.07 x10^6/uL (4.38-5.82); RED CELL DISTRIBUTION WIDTH 16.8 % (9.4-14.8)
[2018-10-18] MEDS ORDERED: VANCOMYCIN PER PHARMACY IV ONE (23:30)
[2018-10-18] MEDS ORDERED: PIPERACILLIN/TAZO/PMX 3.375GM 50 ML IVPB ONE (23:30)
[2018-10-19] MEDS ORDERED: VANCOMYCIN 1,400 MG in SODIUM CHLORIDE 0.9% 250 ML IV ONE
--- NOTE | 2018-10-19 00:13 | NUR ---
PT RESTING CALMLY, DENIES NEEDS, MONITORS IN PLACE, IV ABX STARTED, MONITORS IN PLACE, CALL LIGHT WITHIN REACH. AWAITING TRANSFER TO ROOM
--- NOTE | 2018-10-19 00:23 | NUR ---
DISCUSSED PT'S WOUND CLEANING WITH ERP, PER ERP NO WOUND CLEANING AT THIS TIME, WOUND NEEDS TO BE DEDRIDED, OK TO TRANSFER PT TO FLOOR.
[2018-10-19] MEDS ORDERED: hydrALAzine 20 MG/ML, 1ML IVPush PRN (00:30)
[2018-10-19] MEDS ORDERED: ONDANSETRON ODT 4 MG PO PRN (00:30)
[2018-10-19] MEDS ORDERED: VANCOMYCIN PER PHARMACY MC PRN (00:30)
[2018-10-19] MEDS ORDERED: BISACODYL 10 MG SUPP PR PRN (00:30)
[2018-10-19] MEDS ORDERED: POLYETHYLENE GLYCOL 17 GM PACKET PO PRN (00:30)
[2018-10-19] MEDS ORDERED: morphine SULFATE 10 MG/ML, 1ML IVPush PRN (00:30)
[2018-10-19] MEDS: HEPARIN 5,000 UNITS/ML, 1ML SQ SCH ×4 (00:30→17:24)
[2018-10-19] MEDS ORDERED: ACETAMINOPHEN 325 MG TABLET PO PRN (00:30)
[2018-10-19 00:35] VITALS: BP 148/86
[2018-10-19] MEDS ORDERED: PHARMACOKINETIC MONITORING MC PRN (01:30)
[2018-10-19] MEDS: SODIUM CHLORIDE 0.9% 1,000 ML IV SCH ×2 (01:52→20:18)
[2018-10-19] MEDS: NICOTINE 14MG/24 HR PATCH.TD24 TD SCH (01:52)
[2018-10-19] MEDS: PIPERACILLIN/TAZO/PMX 3.375GM 50 ML IV SCH ×4 (01:53→20:18)
[2018-10-19 03:36] VITALS: BP 144/68
[2018-10-19 06:07] LABS: BASOPHILS # (AUTO) 0.13 x10^3/uL (0-0.1); BASOPHILS % (AUTO) 1 % (0-1); EOSINOPHILS # (AUTO) 0.49 x10^3/uL (0-0.4); EOSINOPHILS % (AUTO) 5 % (1-7); LYMPHOCYTES # (AUTO) 2.37 x10^3/uL (1-3.4); LYMPHOCYTES % (AUTO) 24 % (22-44); MD NO; MEAN CORPUSCULAR HEMOGLOBIN 29.4 pg (27.5-34.5); MEAN CORPUSCULAR HGB CONC 32.8 g/dL (33.2-36.2); MEAN CORPUSCULAR VOLUME 89.5 fL (81-97); MONOCYTES # (AUTO) 1.12 x10^3/uL (0.2-0.8); MONOCYTES % (AUTO) 11 % (2-9); NEUTROPHILS # (AUTO) 5.77 x10^3/uL (1.8-6.8); NEUTROPHILS % (AUTO) 58 % (42-75); PLATELET COUNT 550 x10^3/uL (130-400); RED BLOOD COUNT 3.94 x10^6/uL (4.38-5.82); RED CELL DISTRIBUTION WIDTH 16.5 % (9.4-14.8)
[2018-10-19 06:18] LABS: CHLORIDE 112 mmol/L (98-107)
[2018-10-19 06:24] LABS: ALANINE AMINOTRANSFERASE 15 U/L (12-78); ALBUMIN 2.8 g/dL (3.4-5.0); ALKALINE PHOSPHATASE 72 U/L (45-117); ANION GAP 7 mmol/L (5-15); BILIRUBIN,TOTAL 0.7 mg/dL (0.2-1.0); CALCIUM 7.5 mg/dL (8.5-10.1); CREATININE 0.71 mg/dL (0.7-1.3); TOTAL PROTEIN 7.5 g/dL (6.4-8.2)
[2018-10-19] MEDS ORDERED: POTASSIUM CHLORIDE 40 MEQ in SODIUM CHLORIDE 0.9% 500 ML IV ONE (08:30)
[2018-10-19] MEDS: SENNA/DOCUSATE TABLET PO SCH ×2 (08:38→09:07)
[2018-10-19 08:42] LABS: INTERNATIONAL NORMALIZED RATIO 1.02 (0.93-1.1); PROTHROMBIN TIME 10.8 Seconds (9.6-11.5)
[2018-10-19 09:10] VITALS: BP 138/68
[2018-10-19] MEDS ORDERED: GADOBUTROL 7.5 MMOL/7.5 ML PFS ONE (12:15)
[2018-10-19 15:25] VITALS: BP 106/61
[2018-10-19] MEDS: VANCOMYCIN 1,700 MG in SODIUM CHLORIDE 0.9% 250 ML IV SCH (15:25)
[2018-10-19 19:18] VITALS: BP 130/82
[2018-10-20] MEDS: NICOTINE 14MG/24 HR PATCH.TD24 TD SCH (00:26)
[2018-10-20] MEDS: HEPARIN 5,000 UNITS/ML, 1ML SQ SCH ×2 (00:26→09:23)
[2018-10-20 01:14] VITALS: BP 121/81
[2018-10-20] MEDS: PIPERACILLIN/TAZO/PMX 3.375GM 50 ML IV SCH ×3 (01:29→13:49)
[2018-10-20 06:47] LABS: BASOPHILS # (AUTO) 0.08 x10^3/uL (0-0.1); BASOPHILS % (AUTO) 1 % (0-1); EOSINOPHILS # (AUTO) 0.45 x10^3/uL (0-0.4); EOSINOPHILS % (AUTO) 4 % (1-7); LYMPHOCYTES # (AUTO) 2.77 x10^3/uL (1-3.4); LYMPHOCYTES % (AUTO) 27 % (22-44); MD NO; MEAN CORPUSCULAR HEMOGLOBIN 28.6 pg (27.5-34.5); MEAN CORPUSCULAR HGB CONC 31.9 g/dL (33.2-36.2); MEAN CORPUSCULAR VOLUME 89.5 fL (81-97); MEAN PLATELET VOLUME 7.9 fL (7.4-10.4); MONOCYTES # (AUTO) 0.68 x10^3/uL (0.2-0.8); MONOCYTES % (AUTO) 7 % (2-9); NEUTROPHILS # (AUTO) 6.12 x10^3/uL (1.8-6.8); NEUTROPHILS % (AUTO) 61 % (42-75); PLATELET COUNT 550 x10^3/uL (130-400); RED CELL DISTRIBUTION WIDTH 16.4 % (9.4-14.8)
[2018-10-20 06:49] LABS: ANION GAP 7 mmol/L (5-15); CALCIUM 7.9 mg/dL (8.5-10.1); CHLORIDE 113 mmol/L (98-107); CREATININE 0.89 mg/dL (0.7-1.3)
[2018-10-20 07:50] VITALS: BP 115/67
[2018-10-20] MEDS: VANCOMYCIN 1,700 MG in SODIUM CHLORIDE 0.9% 250 ML IV SCH (09:22)
[2018-10-20] MEDS: SODIUM CHLORIDE 0.9% 1,000 ML IV SCH (09:24)
[2018-10-20 13:35] VITALS: BP 127/78
[2018-10-20] MEDS ORDERED: SULF1TAB24 PO (15:11)
[2018-10-20] MEDS ORDERED: LACT1TAB13 PO (15:11)
[2018-10-20] MEDS ORDERED: NICO-486 TD (15:11)
[2018-10-20] MEDS ORDERED: AMOX1TAB64 PO (15:11)
== END 2018-10-20 16:00 | disposition home or self-care (01) | DRG 603 ==
LOC: ED 22:11 → EDIP 23:47 → 4NOR 10-19 00:40
PROVIDERS: ADMIT Hospitalist; ATTEND Hospitalist
DX: L03.116 Cellulitis of left lower limb (principal); E44.0 Moderate protein-calorie malnutrition; G45.9 Transient cerebral ischemic attack, unspecified; I13.0 Hypertensive heart and chronic kidney disease with heart failure and stage 1 through stage 4 chronic kidney disease, or unspecified chronic kidney disease; I50.32 Chronic diastolic (congestive) heart failure; I24.8 Other forms of acute ischemic heart disease; D64.9 Anemia, unspecified; E03.9 Hypothyroidism, unspecified; Z66 Do not resuscitate; E11.22 Type 2 diabetes mellitus with diabetic chronic kidney disease; F03.90 Unspecified dementia, unspecified severity, without behavioral disturbance, psychotic disturbance, mood disturbance, and anxiety; F17.210 Nicotine dependence, cigarettes, uncomplicated; I27.20 Pulmonary hypertension, unspecified; N18.3 Chronic kidney disease, stage 3 (moderate); R32 Unspecified urinary incontinence; Z59.0 Homelessness; Z86.11 Personal history of tuberculosis; Z68.28 Body mass index [BMI] 28.0-28.9, adult; Z86.73 Personal history of transient ischemic attack (TIA), and cerebral infarction without residual deficits
CPT/HCPCS: 36415; 80048; 80053; 85025; 85610; 87040; 87070; 87077; 87147; 87186; 87205; A9585; G0378; J1644; J2543; J3370; J3480; J7030; J7040; J7050

== ENCOUNTER 2019-01-24 21:23 | Inpatient (IN) | payer MEDICAID ==
[~2019-01-24] VITALS: Ht 177.8 cm; Wt 87.9 kg
[~2019-01-24 21:23] MED LIST changes: +LACT1TAB13 PO; +NICO-486 TD; +SULF1TAB24 PO
[2019-01-24 21:53] LABS: MEAN CORPUSCULAR HEMOGLOBIN 26.8 pg (27.5-34.5); MEAN CORPUSCULAR HGB CONC 31.6 g/dL (33.2-36.2); MEAN CORPUSCULAR VOLUME 84.8 fL (81-97); MEAN PLATELET VOLUME 7.7 fL (7.4-10.4); PLATELET COUNT 524 x10^3/uL (130-400); RED BLOOD COUNT 4.56 x10^6/uL (4.38-5.82); RED CELL DISTRIBUTION WIDTH 18.1 % (9.4-14.8)
[2019-01-24 22:03] LABS: ALBUMIN 3.3 g/dL (3.4-5.0); ANION GAP 8 mmol/L (5-15); CALCIUM 8.3 mg/dL (8.5-10.1); CHLORIDE 109 mmol/L (98-107); CREATININE 0.96 mg/dL (0.7-1.3)
[2019-01-24 22:21] LABS: BASOPHILS # (AUTO) 0.06 x10^3/uL (0-0.1); BASOPHILS % (AUTO) 0 % (0-1); EOSINOPHILS # (AUTO) 0.24 x10^3/uL (0-0.4); EOSINOPHILS % (AUTO) 2 % (1-7); LYMPHOCYTES # (AUTO) 1.96 x10^3/uL (1-3.4); LYMPHOCYTES % (AUTO) 13 % (22-44); MD SCAN; MONOCYTES # (AUTO) 0.93 x10^3/uL (0.2-0.8); MONOCYTES % (AUTO) 6 % (2-9); NEUTROPHILS % (AUTO) 79 % (42-75)
--- NOTE | 2019-01-24 22:26 | NUR ---
DR. FONTAINE IN TO DISCUSS POC WITH PT. PT. TO BE ADMIT FOR WOUND CARE AND SW F/U.
--- NOTE | 2019-01-24 22:51 | NUR ---
MULTIPLE FAILED ATTEMPTS AT IV ACCESS BY THIS RN AND ENGINEER BOOSTER AND EXHAUSTER STUDENT. LAB AT BS FOR BLOOD CULTURES NOW.
[2019-01-24] MEDS ORDERED: PIPERACILLIN/TAZO/PMX 3.375GM 50 ML ONE (22:57)
--- NOTE | 2019-01-24 22:58 | NUR ---
2 SETS OF BLOOD CULTURES COMPLETED BY LAB. ANOTHER RN IN TO OBTAIN IV ACCESS. THROUGHOUT STAY PT. HAS BEEN RESING ON GUTODD WITH DEBBIE. X-RAY AT BS NOW. CALL LIGHT HAS BEEN IN REACH AND SAFETY MEASURES OBSERVED WITH EACH ENCOUNTER.
[2019-01-24] MEDS ORDERED: PIPERACILLIN/TAZO/PMX 3.375GM 50 ML IVPB ONE (23:00)
[2019-01-24] MEDS ORDERED: VANCOMYCIN PER PHARMACY IV ONE (23:00)
[2019-01-24] MEDS ORDERED: VANCOMYCIN 1,500 MG in SODIUM CHLORIDE 0.9% 250 ML IV ONE (23:00)
--- NOTE | 2019-01-24 23:01 | NUR ---
TASK RN: PIV PLACED AT THIS TIME.
--- NOTE | 2019-01-24 23:47 | NUR ---
[facility] AT TO EVAL PT. FOR ADMISSION.
--- NOTE | 2019-01-24 23:56 | NUR ---
REPORT TO SEVERINO BAILEY. FLOOR READY FOR PT. TRANSPORT.
[2019-01-25] MEDS ORDERED: VANCOMYCIN PER PHARMACY MC PRN (00:30)
[2019-01-25] MEDS ORDERED: TEMAZEPAM 15 MG CAPSULE PO PRN (00:30)
[2019-01-25] MEDS ORDERED: BISACODYL 10 MG SUPP PR PRN (00:30)
[2019-01-25] MEDS ORDERED: ONDANSETRON ODT 4 MG PO PRN (00:30)
[2019-01-25] MEDS ORDERED: hydrALAzine 20 MG/ML, 1ML IVPush PRN (00:30)
[2019-01-25] MEDS ORDERED: ACETAMINOPHEN 325 MG TABLET PO PRN (00:30)
[2019-01-25] MEDS ORDERED: PHARMACOKINETIC MONITORING MC PRN (01:30)
[2019-01-25 02:22] VITALS: BP 125/73
[2019-01-25] MEDS: PIPERACILLIN/TAZO/PMX 3.375GM 50 ML IV SCH ×4 (04:55→23:15)
[2019-01-25 07:25] VITALS: BP 122/75
[2019-01-25] MEDS ORDERED: GADOBUTROL 7.5 MMOL/7.5 ML PFS ONE (08:51)
[2019-01-25] MEDS: VANCOMYCIN 1,500 MG in SODIUM CHLORIDE 0.9% 250 ML IV SCH (12:48)
[2019-01-25 15:00] VITALS: BP 135/89
[2019-01-25 21:25] VITALS: BP 132/78
[2019-01-26] VITALS (7 sets, daily range): BP systolic 97–154; BP diastolic 53–112
[2019-01-26] MEDS: VANCOMYCIN 1,500 MG in SODIUM CHLORIDE 0.9% 250 ML IV SCH ×2 (00:40→12:50)
[2019-01-26] MEDS: PIPERACILLIN/TAZO/PMX 3.375GM 50 ML IV SCH ×4 (05:26→23:50)
[2019-01-26 05:45] LABS: MEAN CORPUSCULAR HEMOGLOBIN 25.8 pg (27.5-34.5); MEAN CORPUSCULAR HGB CONC 30.1 g/dL (33.2-36.2); MEAN CORPUSCULAR VOLUME 85.6 fL (81-97); MEAN PLATELET VOLUME 8.1 fL (7.4-10.4); PLATELET COUNT 430 x10^3/uL (130-400); RED BLOOD COUNT 4.65 x10^6/uL (4.38-5.82); RED CELL DISTRIBUTION WIDTH 18.6 % (9.4-14.8)
[2019-01-26 05:48] LABS: ANION GAP 6 mmol/L (5-15); CALCIUM 7.9 mg/dL (8.5-10.1); CHLORIDE 108 mmol/L (98-107); CREATININE 0.79 mg/dL (0.7-1.3)
[2019-01-26 06:31] LABS: MD YES
[2019-01-26 06:34] LABS: EOS% (MANUAL) 5 % (1-7); LYMPH#(MANUAL) 3.78 x10^3/uL (1-3.4); LYMPHS% (MANUAL) 27 % (22-44); MONOS#(MANUAL) 0.98 x10^3/uL (0.3-2.7); MONOS% (MANUAL) 7 % (2-9); SEG#(MANUAL) 8.54 x10^3/uL (1.8-6.8); SEGS% (MANUAL) 61 % (42-75)
[2019-01-26 06:35] LABS: ANISOCYTOSIS 1+; HYPOCHROMIA 1+; OVALOCYTES 1+
[2019-01-26 06:36] LABS: <PLATELET ESTIMATE> INCREASED; <PLT MORPHOLOGY> NORMAL PLT MORPH
[2019-01-27] MEDS: VANCOMYCIN 1,500 MG in SODIUM CHLORIDE 0.9% 250 ML IV SCH ×2 (00:29→13:11)
[2019-01-27 02:45] VITALS: BP 136/89
[2019-01-27] MEDS: PIPERACILLIN/TAZO/PMX 3.375GM 50 ML IV SCH ×4 (05:15→23:42)
[2019-01-27 05:59] LABS: BASOPHILS # (AUTO) 0.17 x10^3/uL (0-0.1); BASOPHILS % (AUTO) 2 % (0-1); EOSINOPHILS # (AUTO) 0.73 x10^3/uL (0-0.4); EOSINOPHILS % (AUTO) 7 % (1-7); LYMPHOCYTES # (AUTO) 2.15 x10^3/uL (1-3.4); LYMPHOCYTES % (AUTO) 22 % (22-44); MD NO; MEAN CORPUSCULAR HEMOGLOBIN 26.7 pg (27.5-34.5); MEAN CORPUSCULAR HGB CONC 31.4 g/dL (33.2-36.2); MEAN PLATELET VOLUME 7.8 fL (7.4-10.4); MONOCYTES # (AUTO) 1.16 x10^3/uL (0.2-0.8); MONOCYTES % (AUTO) 12 % (2-9); NEUTROPHILS # (AUTO) 5.71 x10^3/uL (1.8-6.8); NEUTROPHILS % (AUTO) 58 % (42-75); PLATELET COUNT 478 x10^3/uL (130-400); RED BLOOD COUNT 4.56 x10^6/uL (4.38-5.82); RED CELL DISTRIBUTION WIDTH 18.6 % (9.4-14.8)
[2019-01-27 06:38] LABS: ANION GAP 9 mmol/L (5-15); CHLORIDE 108 mmol/L (98-107); CREATININE 0.82 mg/dL (0.7-1.3)
[2019-01-27 11:02] VITALS: BP 131/84
[2019-01-27 13:30] VITALS: BP 136/89
[2019-01-27] MEDS ORDERED: KETOROLAC 30 MG/1 ML IVPush PRN (14:00)
[2019-01-27] MEDS ORDERED: ACETAMINOPHEN 325 MG TABLET PO PRN (14:00)
[2019-01-27 19:08] VITALS: BP 148/89
[2019-01-27] MEDS: SODIUM CHLORIDE NASAL SPRAY 45ML BOTTLE NAS SCH (19:58)
[2019-01-27] MEDS: FLUTICASONE NASAL SPRAY 16GM NAS SCH (20:01)
[2019-01-28] MEDS: VANCOMYCIN 1,500 MG in SODIUM CHLORIDE 0.9% 250 ML IV SCH ×2 (00:16→13:42)
[2019-01-28 00:36] VITALS: BP 112/59
[2019-01-28] MEDS: PIPERACILLIN/TAZO/PMX 3.375GM 50 ML IV SCH ×4 (05:42→23:20)
[2019-01-28 06:36] VITALS: BP 142/79
[2019-01-28 07:34] VITALS: BP 142/79
[2019-01-28] MEDS: SODIUM CHLORIDE NASAL SPRAY 45ML BOTTLE NAS SCH ×2 (09:00→19:39)
[2019-01-28] MEDS: FLUTICASONE NASAL SPRAY 16GM NAS SCH ×2 (09:00→19:39)
[2019-01-28] MEDS: HEPARIN 5,000 UNITS/ML, 1ML SQ SCH ×2 (13:42→19:39)
[2019-01-28 14:56] VITALS: BP 140/97
[2019-01-28 19:11] VITALS: BP 140/99
[2019-01-29 00:33] VITALS: BP 137/91
[2019-01-29] MEDS: VANCOMYCIN 1,500 MG in SODIUM CHLORIDE 0.9% 250 ML IV SCH (01:41)
[2019-01-29] MEDS: HEPARIN 5,000 UNITS/ML, 1ML SQ SCH ×4 (04:30→19:11)
[2019-01-29] MEDS: PIPERACILLIN/TAZO/PMX 3.375GM 50 ML IV SCH ×2 (05:05→11:30)
[2019-01-29 08:00] VITALS: BP 143/94
[2019-01-29] MEDS: FLUTICASONE NASAL SPRAY 16GM NAS SCH ×2 (09:00→19:11)
[2019-01-29] MEDS: SODIUM CHLORIDE NASAL SPRAY 45ML BOTTLE NAS SCH ×2 (09:00→19:12)
[2019-01-29 09:50] LABS: MEAN CORPUSCULAR HGB CONC 31.5 g/dL (33.2-36.2); MEAN CORPUSCULAR VOLUME 85.7 fL (81-97); MEAN PLATELET VOLUME 7.9 fL (7.4-10.4); PLATELET COUNT 539 x10^3/uL (130-400); RED BLOOD COUNT 4.85 x10^6/uL (4.38-5.82); RED CELL DISTRIBUTION WIDTH 18.4 % (9.4-14.8)
[2019-01-29 09:55] LABS: ALANINE AMINOTRANSFERASE 16 U/L (12-78); ANION GAP 5 mmol/L (5-15); CALCIUM 8.3 mg/dL (8.5-10.1); CHLORIDE 108 mmol/L (98-107); CREATININE 0.85 mg/dL (0.7-1.3)
[2019-01-29 09:57] LABS: ALKALINE PHOSPHATASE 58 U/L (45-117); BILIRUBIN,TOTAL 0.6 mg/dL (0.2-1.0); TOTAL PROTEIN 8.5 g/dL (6.4-8.2)
[2019-01-29 10:16] LABS: BASOPHILS # (AUTO) 0.06 x10^3/uL (0-0.1); BASOPHILS % (AUTO) 1 % (0-1); EOSINOPHILS # (AUTO) 0.86 x10^3/uL (0-0.4); EOSINOPHILS % (AUTO) 12 % (1-7); LYMPHOCYTES # (AUTO) 2.34 x10^3/uL (1-3.4); LYMPHOCYTES % (AUTO) 31 % (22-44); MD SCAN; MONOCYTES # (AUTO) 0.74 x10^3/uL (0.2-0.8); MONOCYTES % (AUTO) 10 % (2-9); NEUTROPHILS # (AUTO) 3.53 x10^3/uL (1.8-6.8); NEUTROPHILS % (AUTO) 47 % (42-75)
[2019-01-29 14:00] VITALS: BP 120/87
[2019-01-29] MEDS: AMPICILLIN/SULBACTAM 3 GM in SODIUM CHLORIDE 0.9% 100 ML IV SCH ×2 (17:18→23:18)
[2019-01-29] MEDS: DOXYCYCLINE 100 MG in DEXTROSE 5% 250 ML IV SCH (18:05)
[2019-01-29 19:33] VITALS: BP 142/90
[2019-01-30 02:47] VITALS: BP 146/101
[2019-01-30] MEDS: HEPARIN 5,000 UNITS/ML, 1ML SQ SCH ×4 (04:00→23:27)
[2019-01-30] MEDS: AMPICILLIN/SULBACTAM 3 GM in SODIUM CHLORIDE 0.9% 100 ML IV SCH ×4 (05:09→23:26)
[2019-01-30 06:00] LABS: BASOPHILS # (AUTO) 0.05 x10^3/uL (0-0.1); BASOPHILS % (AUTO) 1 % (0-1); EOSINOPHILS # (AUTO) 1.06 x10^3/uL (0-0.4); EOSINOPHILS % (AUTO) 13 % (1-7); LYMPHOCYTES # (AUTO) 2.32 x10^3/uL (1-3.4); LYMPHOCYTES % (AUTO) 27 % (22-44); MD NO; MEAN CORPUSCULAR HEMOGLOBIN 26.6 pg (27.5-34.5); MEAN CORPUSCULAR HGB CONC 31.2 g/dL (33.2-36.2); MEAN CORPUSCULAR VOLUME 85.2 fL (81-97); MEAN PLATELET VOLUME 7.9 fL (7.4-10.4); MONOCYTES # (AUTO) 0.94 x10^3/uL (0.2-0.8); MONOCYTES % (AUTO) 11 % (2-9); NEUTROPHILS # (AUTO) 4.13 x10^3/uL (1.8-6.8); NEUTROPHILS % (AUTO) 49 % (42-75); PLATELET COUNT 570 x10^3/uL (130-400); RED BLOOD COUNT 5.02 x10^6/uL (4.38-5.82)
[2019-01-30 06:02] LABS: ANION GAP 7 mmol/L (5-15); CALCIUM 8.4 mg/dL (8.5-10.1); CHLORIDE 105 mmol/L (98-107)
[2019-01-30] MEDS: DOXYCYCLINE 100 MG in DEXTROSE 5% 250 ML IV SCH ×2 (06:03→18:21)
[2019-01-30 06:14] LABS: ALANINE AMINOTRANSFERASE 18 U/L (12-78); ALBUMIN 3.1 g/dL (3.4-5.0); ALKALINE PHOSPHATASE 59 U/L (45-117); BILIRUBIN,TOTAL 0.3 mg/dL (0.2-1.0); CREATININE 0.84 mg/dL (0.7-1.3); TOTAL PROTEIN 8.9 g/dL (6.4-8.2)
[2019-01-30 06:39] VITALS: BP 156/95
[2019-01-30] MEDS: FLUTICASONE NASAL SPRAY 16GM NAS SCH ×2 (09:00→19:08)
[2019-01-30] MEDS: SODIUM CHLORIDE NASAL SPRAY 45ML BOTTLE NAS SCH ×2 (09:00→19:08)
[2019-01-30 13:03] VITALS: BP 165/99
[2019-01-30 20:49] VITALS: BP 139/94
[2019-01-31 01:29] VITALS: BP 138/96
[2019-01-31] MEDS: AMPICILLIN/SULBACTAM 3 GM in SODIUM CHLORIDE 0.9% 100 ML IV SCH ×2 (05:04→13:43)
[2019-01-31] MEDS: DOXYCYCLINE 100 MG in DEXTROSE 5% 250 ML IV SCH ×2 (05:48→18:19)
[2019-01-31 05:54] LABS: MEAN CORPUSCULAR HEMOGLOBIN 26.7 pg (27.5-34.5); MEAN CORPUSCULAR HGB CONC 31.2 g/dL (33.2-36.2); MEAN CORPUSCULAR VOLUME 85.6 fL (81-97); MEAN PLATELET VOLUME 7.7 fL (7.4-10.4); PLATELET COUNT 553 x10^3/uL (130-400); RED BLOOD COUNT 4.98 x10^6/uL (4.38-5.82); RED CELL DISTRIBUTION WIDTH 18.6 % (9.4-14.8)
[2019-01-31 06:06] LABS: CHLORIDE 108 mmol/L (98-107)
[2019-01-31 06:11] LABS: ALANINE AMINOTRANSFERASE 19 U/L (12-78); ALKALINE PHOSPHATASE 55 U/L (45-117); ANION GAP 7 mmol/L (5-15); BILIRUBIN,TOTAL 0.3 mg/dL (0.2-1.0); CALCIUM 8.4 mg/dL (8.5-10.1); CREATININE 0.87 mg/dL (0.7-1.3); TOTAL PROTEIN 8.5 g/dL (6.4-8.2)
[2019-01-31 07:04] LABS: BASOPHILS # (AUTO) 0.42 x10^3/uL (0-0.1); BASOPHILS % (AUTO) 5 % (0-1); EOSINOPHILS # (AUTO) 0.96 x10^3/uL (0-0.4); EOSINOPHILS % (AUTO) 12 % (1-7); LYMPHOCYTES # (AUTO) 2.26 x10^3/uL (1-3.4); LYMPHOCYTES % (AUTO) 28 % (22-44); MD SCAN; MONOCYTES # (AUTO) 1.01 x10^3/uL (0.2-0.8); MONOCYTES % (AUTO) 12 % (2-9); NEUTROPHILS # (AUTO) 3.54 x10^3/uL (1.8-6.8); NEUTROPHILS % (AUTO) 43 % (42-75)
[2019-01-31] MEDS: SODIUM CHLORIDE NASAL SPRAY 45ML BOTTLE NAS SCH ×2 (09:00→19:21)
[2019-01-31] MEDS: FLUTICASONE NASAL SPRAY 16GM NAS SCH ×2 (09:00→19:21)
[2019-01-31 09:13] VITALS: BP 141/92
[2019-01-31] MEDS: HEPARIN 5,000 UNITS/ML, 1ML SQ SCH ×3 (12:41→19:22)
[2019-01-31 15:15] VITALS: BP 140/89
[2019-01-31] MEDS: PIPERACILLIN/TAZO/PMX 3.375GM 50 ML IV SCH ×2 (17:33→23:08)
[2019-01-31 18:49] VITALS: BP 139/90
[2019-02-01 01:02] VITALS: BP 133/87
[2019-02-01] MEDS: PIPERACILLIN/TAZO/PMX 3.375GM 50 ML IV SCH ×4 (05:13→22:49)
[2019-02-01] MEDS: DOXYCYCLINE 100 MG in DEXTROSE 5% 250 ML IV SCH ×2 (05:49→17:50)
[2019-02-01 06:27] LABS: BASOPHILS # (AUTO) 0.06 x10^3/uL (0-0.1); BASOPHILS % (AUTO) 1 % (0-1); EOSINOPHILS # (AUTO) 0.95 x10^3/uL (0-0.4); EOSINOPHILS % (AUTO) 11 % (1-7); LYMPHOCYTES # (AUTO) 1.89 x10^3/uL (1-3.4); LYMPHOCYTES % (AUTO) 22 % (22-44); MD NO; MEAN CORPUSCULAR HEMOGLOBIN 26.8 pg (27.5-34.5); MEAN CORPUSCULAR HGB CONC 31.2 g/dL (33.2-36.2); MEAN CORPUSCULAR VOLUME 85.7 fL (81-97); MEAN PLATELET VOLUME 7.8 fL (7.4-10.4); MONOCYTES # (AUTO) 0.75 x10^3/uL (0.2-0.8); MONOCYTES % (AUTO) 9 % (2-9); NEUTROPHILS # (AUTO) 5.11 x10^3/uL (1.8-6.8); NEUTROPHILS % (AUTO) 58 % (42-75); PLATELET COUNT 527 x10^3/uL (130-400); RED BLOOD COUNT 5.01 x10^6/uL (4.38-5.82); RED CELL DISTRIBUTION WIDTH 18.7 % (9.4-14.8)
[2019-02-01 06:40] LABS: ALANINE AMINOTRANSFERASE 17 U/L (12-78); ALBUMIN 3.2 g/dL (3.4-5.0); ANION GAP 7 mmol/L (5-15); CALCIUM 8.4 mg/dL (8.5-10.1); CHLORIDE 107 mmol/L (98-107)
[2019-02-01 06:42] LABS: ALKALINE PHOSPHATASE 56 U/L (45-117); BILIRUBIN,TOTAL 0.4 mg/dL (0.2-1.0); CREATININE 0.94 mg/dL (0.7-1.3); TOTAL PROTEIN 8.3 g/dL (6.4-8.2)
[2019-02-01 07:39] VITALS: BP 145/85
[2019-02-01] MEDS: FLUTICASONE NASAL SPRAY 16GM NAS SCH ×2 (09:00→19:34)
[2019-02-01] MEDS: SODIUM CHLORIDE NASAL SPRAY 45ML BOTTLE NAS SCH ×2 (09:00→19:34)
[2019-02-01] MEDS ORDERED: DOXY100C2 PO (10:42)
[2019-02-01] MEDS ORDERED: PIPE3.375 IV (10:42)
[2019-02-01] MEDS: HEPARIN 5,000 UNITS/ML, 1ML SQ SCH ×2 (11:50→19:34)
[2019-02-01 13:54] VITALS: BP 143/98
[2019-02-01 18:52] VITALS: BP 133/86
[2019-02-02 01:24] VITALS: BP 135/78
[2019-02-02] MEDS: HEPARIN 5,000 UNITS/ML, 1ML SQ SCH ×2 (03:36→11:54)
[2019-02-02] MEDS: PIPERACILLIN/TAZO/PMX 3.375GM 50 ML IV SCH ×2 (04:29→11:49)
[2019-02-02] MEDS: DOXYCYCLINE 100 MG in DEXTROSE 5% 250 ML IV SCH (05:56)
[2019-02-02 07:22] VITALS: BP 139/98
[2019-02-02] MEDS: SODIUM CHLORIDE NASAL SPRAY 45ML BOTTLE NAS SCH (08:25)
[2019-02-02] MEDS: FLUTICASONE NASAL SPRAY 16GM NAS SCH (08:25)
[2019-02-02 14:00] VITALS: BP 136/80
== END 2019-02-02 15:45 | DRG 872 ==
LOC: ED 21:52 → EDIP 23:25 → 3NE 01-25 00:59
PROVIDERS: ADMIT Internal Medicine; ATTEND Internal Medicine
PROC: 02HV33Z Insertion of Infusion Device into Superior Vena Cava, Percutaneous Approach (ICD-10-PCS; principal; 2019-02-01)
PROC: B5181ZA Fluoroscopy of Superior Vena Cava using Low Osmolar Contrast, Guidance (ICD-10-PCS; 2019-02-01)
PROC: B548ZZA Ultrasonography of Superior Vena Cava, Guidance (ICD-10-PCS; 2019-02-01)
DX: A41.9 Sepsis, unspecified organism (principal); F17.203 Nicotine dependence unspecified, with withdrawal; L03.116 Cellulitis of left lower limb; I50.32 Chronic diastolic (congestive) heart failure; L97.909 Non-pressure chronic ulcer of unspecified part of unspecified lower leg with unspecified severity; D64.9 Anemia, unspecified; I11.0 Hypertensive heart disease with heart failure; I27.20 Pulmonary hypertension, unspecified; Z59.0 Homelessness; Z71.6 Tobacco abuse counseling; Z86.11 Personal history of tuberculosis; Z63.8 Other specified problems related to primary support group
CPT/HCPCS: 36415; 36573; 71045; 80048; 80053; 80202; 82040; 83605; 83735; 84100; 85025; 87040; 93922; 96365; 99285; A9585; G0378; J0295; J1644; J2543; J3370; J7060; 29580-50; 29581-50; C1751; J7050

== ENCOUNTER 2019-11-19 18:13 | Emergency (ER) | payer MEDICAID ==
[~2019-11-19] VITALS: Ht 177.8 cm; Wt 82.0 kg
[~2019-11-19 18:13] MED LIST changes: +AMOX1TAB12 PO; +DOXY100C2 PO; +DOXY100T PO; -DOXY100T10 PO; +DOXY100T23 PO; +LEVO100T PO; +PIPE3.375 IV; +PRED20TA PO
[2019-11-19 18:23] VITALS: BP 143/103
--- NOTE | 2019-11-19 18:39 | NUR ---
Pt BIB [facility]- Pt c/o wound on LLE for months. Large area of reddened and flaking skin noted to anterior L [place] as well as lesion on L lateral knee. Pt states pain with ambulation. Pt positioned for comfort, continuous oxygen and BP Monitors applied, all safety measures observed.
[2019-11-19 18:44] LABS: MEAN CORPUSCULAR HEMOGLOBIN 29.9 pg (27.5-34.5); MEAN CORPUSCULAR HGB CONC 32.5 g/dL (33.2-36.2); MEAN CORPUSCULAR VOLUME 92.2 fL (81-97); MEAN PLATELET VOLUME 8.2 fL (7.4-10.4); PLATELET COUNT 454 x10^3/uL (130-400); RED BLOOD COUNT 4.72 x10^6/uL (4.38-5.82); RED CELL DISTRIBUTION WIDTH 16.3 % (9.4-14.8)
[2019-11-19 18:54] LABS: ALBUMIN 3.2 g/dL (3.4-5.0); ANION GAP 7 mmol/L (5-15); CALCIUM 8.4 mg/dL (8.5-10.1); CHLORIDE 109 mmol/L (98-107)
--- NOTE | 2019-11-19 18:58 | NUR ---
Received report and assumed patient care. Patient resting comfortably in [facility] with call light at side. Awaiting laboratory results.
[2019-11-19 19:17] LABS: BASOPHILS # (AUTO) 0.02 x10^3/uL (0-0.1); BASOPHILS % (AUTO) 0 % (0-1); EOSINOPHILS # (AUTO) 0.39 x10^3/uL (0-0.4); EOSINOPHILS % (AUTO) 4 % (1-7); LYMPHOCYTES # (AUTO) 1.81 x10^3/uL (1-3.4); LYMPHOCYTES % (AUTO) 16 % (22-44); MD SCAN; MONOCYTES # (AUTO) 0.44 x10^3/uL (0.2-0.8); MONOCYTES % (AUTO) 4 % (2-9); NEUTROPHILS # (AUTO) 8.47 x10^3/uL (1.8-6.8); NEUTROPHILS % (AUTO) 76 % (42-75)
[2019-11-19] MEDS ORDERED: AMOXICILLIN/CLAV 875-125MG TABLET ONE (19:27)
[2019-11-19] MEDS ORDERED: AMOXICILLIN/CLAV 875-125MG TABLET PO ONE (19:30)
== END 2019-11-19 20:12 | disposition home or self-care (01) ==
LOC: ED 19:40
DX: S81.832A Puncture wound without foreign body, left lower leg, initial encounter (principal); M79.662 Pain in left lower leg; I10 Essential (primary) hypertension; F17.200 Nicotine dependence, unspecified, uncomplicated; X58.XXXA Exposure to other specified factors, initial encounter; Y93.89 Activity, other specified; Y92.89 Other specified places as the place of occurrence of the external cause; Y99.8 Other external cause status
CPT/HCPCS: 36415; 80048; 82040; 85025; 99284

== ENCOUNTER 2019-11-21 09:59 | Emergency (ER) | payer MEDICAID ==
[~2019-11-21] VITALS: Ht 177.8 cm; Wt 81.8 kg
[2019-11-21 10:10] VITALS: BP 139/96
--- NOTE | 2019-11-21 11:12 | NUR ---
PA TO BEDSIDE FOR ASSESSMENT
== END 2019-11-21 11:55 | disposition home or self-care (01) ==
LOC: ED 11:40
DX: M25.551 Pain in right hip (principal); I10 Essential (primary) hypertension; F17.200 Nicotine dependence, unspecified, uncomplicated
CPT/HCPCS: 72190; 99283

== ENCOUNTER 2019-11-26 17:41 | Emergency (ER) | payer MEDICAID ==
[~2019-11-26] VITALS: Ht 177.8 cm; Wt 81.0 kg
[2019-11-26 17:47] VITALS: BP 164/84
--- NOTE | 2019-11-26 18:26 | NUR ---
BIB [facility], PT WITH C/O GEN WEAKNESS AND PAIN TO LLE FROM A CHRONIC WOUND. UNABLE TO WALK PER PT. PER EMS REPORT PT AT [facility] SITTING ON BENCH WHEN ARRIVED TO SCENE. WOUND UNWRAPPED PER ERMD, AWAITING ORDERS
--- NOTE | 2019-11-26 19:11 | NUR ---
Report received from SEVERINO Wells. This RN to assume care. Per ERP, leg to be redressed.
--- NOTE | 2019-11-26 19:50 | NUR ---
Walker offered to patient but he refused. Discharge instructions given to patient. All questions and concerns addressed. Patient ambulatory with a steady gait. Belongings with patient.
== END 2019-11-26 20:10 | disposition home or self-care (01) ==
LOC: ED 18:28
DX: S80.922A Unspecified superficial injury of left lower leg, initial encounter (principal); I10 Essential (primary) hypertension; Z72.9 Problem related to lifestyle, unspecified; X58.XXXA Exposure to other specified factors, initial encounter; Y93.89 Activity, other specified; Y92.89 Other specified places as the place of occurrence of the external cause; Y99.8 Other external cause status
CPT/HCPCS: 99283

== ENCOUNTER 2019-12-20 16:45 | Emergency (ER) | payer MEDICAID ==
[~2019-12-20] VITALS: Ht 177.8 cm; Wt 82.0 kg
--- NOTE | 2019-12-20 17:00 | NUR ---
BIB [facility], PT WITH C/O DIFFICULTY WALKING D/T CHRONIC LE CELLULITIS. PT WITH BLE WOUNDS AND ERRYTHMA. PT DENIES FEVERS.
[2019-12-20] MEDS ORDERED: SODIUM CHLORIDE FLUSH 10ML SYR IVF ONE (18:00)
[2019-12-20] MEDS ORDERED: CEFTRIAXONE PMX 1GM/50ML 50 ML IVPB ONE (18:00)
[2019-12-20] MEDS ORDERED: CEFTRIAXONE PMX 1GM/50ML 50 ML ONE (18:06)
[2019-12-20] MEDS ORDERED: NEOSPORIN OINT. PKT 1 PACKET ONE (18:19)
[2019-12-20 18:27] LABS: MEAN CORPUSCULAR HEMOGLOBIN 29.8 pg (27.5-34.5); MEAN CORPUSCULAR HGB CONC 32.2 g/dL (33.2-36.2); MEAN CORPUSCULAR VOLUME 92.5 fL (81-97); MEAN PLATELET VOLUME 7.4 fL (7.4-10.4); PLATELET COUNT 578 x10^3/uL (130-400); RED BLOOD COUNT 4.24 x10^6/uL (4.38-5.82); RED CELL DISTRIBUTION WIDTH 16.7 % (9.4-14.8)
--- NOTE | 2019-12-20 18:33 | NUR ---
PIV INITIATED, PT MEDICATED PER NOV. DRESSINGS APPLIED TO LLE.
[2019-12-20 18:39] LABS: ALBUMIN 2.9 g/dL (3.4-5.0); ANION GAP 6 mmol/L (5-15); CHLORIDE 109 mmol/L (98-107); CREATININE 0.98 mg/dL (0.7-1.3)
[2019-12-20 18:42] LABS: BASOPHILS # (AUTO) 0.01 x10^3/uL (0-0.1); BASOPHILS % (AUTO) 0 % (0-1); EOSINOPHILS # (AUTO) 0.29 x10^3/uL (0-0.4); EOSINOPHILS % (AUTO) 3 % (1-7); LYMPHOCYTES # (AUTO) 1.93 x10^3/uL (1-3.4); LYMPHOCYTES % (AUTO) 18 % (22-44); MD SCAN; MONOCYTES # (AUTO) 0.37 x10^3/uL (0.2-0.8); MONOCYTES % (AUTO) 3 % (2-9); NEUTROPHILS # (AUTO) 8.36 x10^3/uL (1.8-6.8); NEUTROPHILS % (AUTO) 76 % (42-75)
--- NOTE | 2019-12-20 19:25 | NUR ---
REPORT RECEIVED FROM SEVERINO GOMEZ
--- NOTE | 2019-12-20 20:07 | NUR ---
PIV REMOVED, PATIENT INSTRUCTED TO GET CLOTHES ON FOR DISCHARGE
[2019-12-20 20:08] VITALS: BP 162/87
--- NOTE | 2019-12-20 20:15 | NUR ---
Patient/Caregiver given discharge instructions and they have confirmed that they understand the instructions. Patient ambulatory with steady gait.
== END 2019-12-20 20:28 | disposition home or self-care (01) ==
LOC: ED 17:19
DX: L03.116 Cellulitis of left lower limb (principal); I83.028 Varicose veins of left lower extremity with ulcer other part of lower leg; F17.200 Nicotine dependence, unspecified, uncomplicated; I10 Essential (primary) hypertension
CPT/HCPCS: 36415; 73590; 80048; 82040; 85025; 96365; 99284; J0696

== ENCOUNTER 2019-12-25 16:19 | Emergency (ER) | payer MEDICAID ==
[~2019-12-25] VITALS: Ht 167.6 cm; Wt 77.3 kg
--- NOTE | 2019-12-25 17:00 | NUR ---
PT'S CLOTHES REMOVED D/T HYGIENE. WOUNDS CLEANED AND DRESSED. NEW CLOTHES PROVIDED. PT TOLERATED WELL.
[2019-12-25 17:27] VITALS: BP 111/70
== END 2019-12-25 17:31 | disposition home or self-care (01) ==
LOC: ED 17:15
DX: L03.116 Cellulitis of left lower limb (principal); I87.8 Other specified disorders of veins; I49.3 Ventricular premature depolarization; I10 Essential (primary) hypertension; F17.200 Nicotine dependence, unspecified, uncomplicated
CPT/HCPCS: 93005; 99283